=== PATIENT | male | born 1975 | race Caucasian/White ===

== ENCOUNTER 2018-01-25 11:16 | Inpatient (IN) | payer OTHER ==
[~2018-01-25] VITALS: Ht 177.8 cm; Wt 99.8 kg
[2018-01-25] MEDS ORDERED: LISI-603 PO (12:50)
[2018-01-25] MEDS ORDERED: THIAMINE HCL 200 MG/2 ML VIAL IM ONE (13:00)
[2018-01-25] MEDS ORDERED: 5 DAY TAPER OF LORAZEPAM -SERENITY PROTOCOL PO PRN (13:15)
[2018-01-25] MEDS ORDERED: LORAZEPAM 1 MG TABLET PO PRN (13:15)
[2018-01-25] MEDS ORDERED: MAG HYDROX/AL HYDROX/SIMETH 30 ML LIQUID UDC PO PRN (13:15)
[2018-01-25] MEDS ORDERED: LORAZEPAM 2 MG/1 ML VIAL IM PRN (13:15)
[2018-01-25] MEDS ORDERED: MAGNESIUM HYDROXIDE 30 ML LIQUID UDC PO PRN (13:15)
[2018-01-25] MEDS: LORAZEPAM 1 MG TABLET PO PRN ×3 (14:04→22:01)
[2018-01-25 14:37] LABS: *AMPHETAMINE, URINE NEGATIVE (NEGATIVE); *BARBITURATE, URINE NEGATIVE (NEGATIVE); *CANNABINOID, URINE POSITIVE (NEGATIVE); *COCCAINE, URINE NEGATIVE (NEGATIVE); *OPIATE, URINE NEGATIVE (NEGATIVE); *PHENCYCLIDINE SCREEN,URINE NEGATIVE (NEGATIVE)
[2018-01-25 15:02] LABS: BILIRUBIN,TOTAL 1.3 mg/dL (0.2-1.0); CREATININE 0.8 mg/dL (0.6-1.3); MAGNESIUM 1.4 mg/dL (1.8-2.4); POTASSIUM 3.6 mmol/L (3.5-5.1); TOTAL PROTEIN, SERUM 6.8 g/dL (6.4-8.2)
[2018-01-25 15:07] LABS: BASOPHILS % (AUTO) 1.3 % (0.0-2.0); EOSINOPHILS % (AUTO) 0.6 % (0.0-7.0); HEMATOCRIT 34.8 % (36.7-47.1); HEMOGLOBIN 12.1 g/dL (12.5-16.3); LYMPHOCYTES # (AUTO) 0.9 K/uL (20.0-40.0); LYMPHOCYTES % (AUTO) 27.7 % (20.5-51.5); MEAN CORPUSCULAR HEMOGLOBIN 31.3 uug (23.8-33.4); MEAN CORPUSCULAR HGB CONC 35 g/dL (32.5-36.3); MEAN CORPUSCULAR VOLUME 90.3 fL (73.0-96.2); MONOCYTES # (AUTO) 0.5 K/uL (2.0-10.0); MONOCYTES % (AUTO) 14.4 % (0.0-11.0); NEUTROPHILS # (AUTO) 1.9 K/uL (1.8-8.9); PLATELET COUNT (AUTO) 139 K/uL (152-348); RED BLOOD CELL COUNT(AUTO) 3.86 MIL/uL (4.06-5.63); WHITE BLOOD COUNT (AUTO) 3.3 K/uL (3.6-10.2)
[2018-01-25] MEDS ORDERED: MAGNESIUM OXIDE 400 MG TABLET PO ONE ×2 (15:45)
[2018-01-25 16:00] VITALS: BP 130/72
[2018-01-25] MEDS: LORAZEPAM 1 MG TABLET PO SCH ×2 (16:05→20:01)
[2018-01-25] MEDS: IBUPROFEN 600 MG TABLET PO PRN (16:05)
[2018-01-25] MEDS: FLUOXETINE HCL 20 MG CAPSULE PO SCH (17:43)
[2018-01-25 19:40] VITALS: BP 135/96
[2018-01-25] MEDS ORDERED: METHOCARBAMOL 750 MG TABLET PO ONE (19:45)
[2018-01-25] MEDS: ACETAMINOPHEN 325 MG TABLET PO PRN (20:01)
[2018-01-25 21:56] VITALS: BP 149/91
[2018-01-25] MEDS: CLONIDINE HCL 0.1 MG TABLET PO PRN (22:01)
[2018-01-25] MEDS: QUETIAPINE FUMARATE 100 MG TABLET PO SCH (22:11)
[2018-01-26] VITALS (7 sets, daily range): BP systolic 101–128; BP diastolic 63–87
[2018-01-26] MEDS: LORAZEPAM 1 MG TABLET PO PRN (02:39)
[2018-01-26] MEDS: IBUPROFEN 600 MG TABLET PO PRN ×3 (02:39→17:45)
[2018-01-26] MEDS: CLONIDINE HCL 0.1 MG TABLET PO PRN (04:33)
[2018-01-26] MEDS: THIAMINE HCL 100 MG TABLET PO SCH (08:15)
[2018-01-26] MEDS: FOLIC ACID 1 MG TABLET PO SCH (08:15)
[2018-01-26] MEDS: LORAZEPAM 1 MG TABLET PO SCH ×3 (08:15→20:14)
[2018-01-26] MEDS: FLUOXETINE HCL 20 MG CAPSULE PO SCH (08:15)
[2018-01-26] MEDS: ACETAMINOPHEN 325 MG TABLET PO PRN ×3 (08:15→21:55)
[2018-01-26] MEDS: MULTIVITAMINS,THERAPEUTIC TABLET PO SCH (08:15)
[2018-01-26] MEDS ORDERED: TUBERCULIN,PURIF.PROT.DERIV. 5 TU/0.1 ML TEST ID ONE (09:00)
[2018-01-26 12:09] LABS: HEPATITIS B SURFACE AG Negative (Negative)
[2018-01-26] MEDS ORDERED: METHOCARBAMOL 750 MG TABLET PO ONE (20:00)
[2018-01-26] MEDS: QUETIAPINE FUMARATE 100 MG TABLET PO SCH (20:14)
[2018-01-27] MEDS: CLONIDINE HCL 0.1 MG TABLET PO PRN ×2 (00:51→07:37)
[2018-01-27] MEDS: diphenhydrAMINE 25 MG CAP PO PRN (00:53)
[2018-01-27 04:00] VITALS: BP 142/99
[2018-01-27 08:01] VITALS: BP 144/100
[2018-01-27] MEDS: MAGNESIUM CHLORIDE 64 MG TABLET.SA PO SCH (08:04)
[2018-01-27] MEDS: THIAMINE HCL 100 MG TABLET PO SCH (08:04)
[2018-01-27] MEDS: FOLIC ACID 1 MG TABLET PO SCH (08:05)
[2018-01-27] MEDS: LORAZEPAM 1 MG TABLET PO SCH ×4 (08:05→20:33)
[2018-01-27] MEDS: FLUOXETINE HCL 20 MG CAPSULE PO SCH (08:05)
[2018-01-27] MEDS: LISINOPRIL 20 MG TABLET PO SCH (08:05)
[2018-01-27] MEDS: MULTIVITAMINS,THERAPEUTIC TABLET PO SCH (08:05)
[2018-01-27 08:09] LABS: CREATININE 0.8 mg/dL (0.6-1.3); MAGNESIUM 1.5 mg/dL (1.8-2.4); POTASSIUM 4.5 mmol/L (3.5-5.1)
[2018-01-27 08:14] LABS: BASOPHILS % (AUTO) 0.8 % (0.0-2.0); EOSINOPHILS % (AUTO) 1.4 % (0.0-7.0); HEMATOCRIT 34.4 % (36.7-47.1); HEMOGLOBIN 11.8 g/dL (12.5-16.3); LYMPHOCYTES # (AUTO) 0.8 K/uL (20.0-40.0); LYMPHOCYTES % (AUTO) 26.1 % (20.5-51.5); MEAN CORPUSCULAR HEMOGLOBIN 31.5 uug (23.8-33.4); MEAN CORPUSCULAR HGB CONC 34 g/dL (32.5-36.3); MEAN CORPUSCULAR VOLUME 91.6 fL (73.0-96.2); MONOCYTES # (AUTO) 0.3 K/uL (2.0-10.0); MONOCYTES % (AUTO) 9.7 % (0.0-11.0); PLATELET COUNT (AUTO) 154 K/uL (152-348); RED BLOOD CELL COUNT(AUTO) 3.76 MIL/uL (4.06-5.63); WHITE BLOOD COUNT (AUTO) 3.2 K/uL (3.6-10.2)
[2018-01-27 12:05] VITALS: BP 113/75
[2018-01-27] MEDS: IBUPROFEN 600 MG TABLET PO PRN ×2 (12:11→20:34)
[2018-01-27] MEDS: ACETAMINOPHEN 325 MG TABLET PO PRN ×2 (12:11→20:34)
[2018-01-27] MEDS ORDERED: MAGNESIUM OXIDE 400 MG TABLET PO ONE (13:00)
[2018-01-27] MEDS ORDERED: HYDROXYZINE PAMOATE 25 MG CAPSULE PO PRN (14:00)
[2018-01-27] MEDS: HYDROXYZINE PAMOATE 25 MG CAPSULE PO PRN (14:39)
[2018-01-27 16:58] VITALS: BP 127/86
[2018-01-27 20:00] VITALS: BP 123/79
[2018-01-27] MEDS: QUETIAPINE FUMARATE 100 MG TABLET PO SCH (20:34)
[2018-01-28] MEDS: LORAZEPAM 1 MG TABLET PO PRN ×3 (01:14→12:35)
[2018-01-28] MEDS: diphenhydrAMINE 25 MG CAP PO PRN (01:19)
[2018-01-28 03:20] VITALS: BP 144/100
[2018-01-28] MEDS: ACETAMINOPHEN 325 MG TABLET PO PRN ×3 (03:20→21:49)
[2018-01-28] MEDS: IBUPROFEN 600 MG TABLET PO PRN ×3 (03:20→21:45)
[2018-01-28] MEDS: CLONIDINE HCL 0.1 MG TABLET PO PRN (03:20)
[2018-01-28 04:00] VITALS: BP 124/83
[2018-01-28 08:00] VITALS: BP 128/90
[2018-01-28] MEDS: LORAZEPAM 1 MG TABLET PO SCH ×3 (08:42→21:40)
[2018-01-28] MEDS: FOLIC ACID 1 MG TABLET PO SCH (08:42)
[2018-01-28] MEDS: LISINOPRIL 20 MG TABLET PO SCH (08:43)
[2018-01-28] MEDS: FLUOXETINE HCL 20 MG CAPSULE PO SCH (08:43)
[2018-01-28] MEDS: MULTIVITAMINS,THERAPEUTIC TABLET PO SCH (08:44)
[2018-01-28] MEDS: THIAMINE HCL 100 MG TABLET PO SCH (08:44)
[2018-01-28] MEDS: MAGNESIUM CHLORIDE 64 MG TABLET.SA PO SCH (08:44)
[2018-01-28 12:30] VITALS: BP 145/87
[2018-01-28] MEDS ORDERED: TIZANIDINE HCL 4 MG TABLET PO SCH (14:30)
[2018-01-28 16:30] VITALS: BP 123/80
[2018-01-28 20:00] VITALS: BP 120/75
[2018-01-28] MEDS: OXYMETAZOLINE NASAL 0.05% 15 ML SPRAY NS SCH (21:00)
[2018-01-28] MEDS: QUETIAPINE FUMARATE 100 MG TABLET PO SCH (21:40)
[2018-01-28] MEDS: TIZANIDINE HCL 4 MG TABLET PO PRN (21:41)
[2018-01-28] MEDS: AMOXICILLIN-CLAVUL 875-125MG TABLET PO SCH (21:41)
[2018-01-29] MEDS: CLONIDINE HCL 0.1 MG TABLET PO PRN ×2 (01:46→10:59)
[2018-01-29] MEDS: diphenhydrAMINE 25 MG CAP PO PRN (01:46)
[2018-01-29] MEDS: HYDROXYZINE PAMOATE 25 MG CAPSULE PO PRN ×2 (01:46→10:59)
[2018-01-29] MEDS: TIZANIDINE HCL 4 MG TABLET PO PRN (05:54)
[2018-01-29 08:00] VITALS: BP 110/63
[2018-01-29] MEDS: IBUPROFEN 600 MG TABLET PO PRN ×2 (08:04→21:03)
[2018-01-29] MEDS: MAGNESIUM CHLORIDE 64 MG TABLET.SA PO SCH (08:04)
[2018-01-29] MEDS: FLUOXETINE HCL 20 MG CAPSULE PO SCH (08:04)
[2018-01-29] MEDS: MULTIVITAMINS,THERAPEUTIC TABLET PO SCH (08:04)
[2018-01-29] MEDS: FOLIC ACID 1 MG TABLET PO SCH (08:04)
[2018-01-29] MEDS: THIAMINE HCL 100 MG TABLET PO SCH (08:05)
[2018-01-29] MEDS: LORAZEPAM 1 MG TABLET PO SCH ×2 (08:05→21:03)
[2018-01-29] MEDS: AMOXICILLIN-CLAVUL 875-125MG TABLET PO SCH ×2 (08:05→21:03)
[2018-01-29] MEDS: ACETAMINOPHEN 325 MG TABLET PO PRN (08:05)
[2018-01-29] MEDS: LISINOPRIL 20 MG TABLET PO SCH (08:05)
[2018-01-29] MEDS: OXYMETAZOLINE NASAL 0.05% 15 ML SPRAY NS SCH ×2 (08:05→17:00)
[2018-01-29 08:27] LABS: BASOPHILS # (AUTO) 0.1 K/uL (0.0-8.0); BASOPHILS % (AUTO) 1.4 % (0.0-2.0); EOSINOPHILS # (AUTO) 0.1 K/uL (0.0-0.7); EOSINOPHILS % (AUTO) 1.5 % (0.0-7.0); HEMATOCRIT 35.5 % (36.7-47.1); HEMOGLOBIN 12.1 g/dL (12.5-16.3); LYMPHOCYTES # (AUTO) 1.2 K/uL (20.0-40.0); LYMPHOCYTES % (AUTO) 29.5 % (20.5-51.5); MEAN CORPUSCULAR HEMOGLOBIN 31.5 uug (23.8-33.4); MEAN CORPUSCULAR HGB CONC 34 g/dL (32.5-36.3); MEAN CORPUSCULAR VOLUME 92.9 fL (73.0-96.2); MONOCYTES # (AUTO) 0.4 K/uL (2.0-10.0); MONOCYTES % (AUTO) 9.1 % (0.0-11.0); NEUTROPHILS # (AUTO) 2.3 K/uL (1.8-8.9); NEUTROPHILS % (AUTO) 58.5 % (38.5-71.5); PLATELET COUNT (AUTO) 191 K/uL (152-348); RED BLOOD CELL COUNT(AUTO) 3.82 MIL/uL (4.06-5.63)
[2018-01-29 12:00] VITALS: BP 132/88
[2018-01-29] MEDS ORDERED: LORAZEPAM 1 MG TABLET PO ONE (13:15)
[2018-01-29] MEDS ORDERED: MAGNESIUM OXIDE 400 MG TABLET PO ONE (15:00)
[2018-01-29 16:00] VITALS: BP 125/84
[2018-01-29 20:00] VITALS: BP 121/79
[2018-01-29] MEDS: QUETIAPINE FUMARATE 100 MG TABLET PO SCH (21:04)
[2018-01-30] VITALS: BP 125/82
[2018-01-30] MEDS: HYDROXYZINE PAMOATE 25 MG CAPSULE PO PRN ×2 (00:24→17:17)
[2018-01-30] MEDS: ACETAMINOPHEN 325 MG TABLET PO PRN ×3 (00:25→20:23)
[2018-01-30] MEDS: CLONIDINE HCL 0.1 MG TABLET PO PRN ×3 (00:29→20:23)
[2018-01-30] MEDS: IBUPROFEN 600 MG TABLET PO PRN ×2 (07:58→17:17)
[2018-01-30 08:00] VITALS: BP 132/88
[2018-01-30] MEDS: OXYMETAZOLINE NASAL 0.05% 15 ML SPRAY NS SCH ×2 (09:06→17:18)
[2018-01-30] MEDS: MULTIVITAMINS,THERAPEUTIC TABLET PO SCH (09:06)
[2018-01-30] MEDS: LISINOPRIL 20 MG TABLET PO SCH (09:06)
[2018-01-30] MEDS: THIAMINE HCL 100 MG TABLET PO SCH (09:06)
[2018-01-30] MEDS: FOLIC ACID 1 MG TABLET PO SCH (09:06)
[2018-01-30] MEDS: FLUOXETINE HCL 20 MG CAPSULE PO SCH (09:06)
[2018-01-30] MEDS: AMOXICILLIN-CLAVUL 875-125MG TABLET PO SCH ×2 (09:06→20:23)
[2018-01-30] MEDS: MAGNESIUM CHLORIDE 64 MG TABLET.SA PO SCH (09:06)
[2018-01-30 12:00] VITALS: BP 141/88
[2018-01-30 16:00] VITALS: BP 139/88
[2018-01-30 20:15] VITALS: BP 138/89
[2018-01-30] MEDS: QUETIAPINE FUMARATE 100 MG TABLET PO SCH (21:50)
[2018-01-31] MEDS: IBUPROFEN 600 MG TABLET PO PRN (02:00)
[2018-01-31] MEDS: HYDROXYZINE PAMOATE 25 MG CAPSULE PO PRN (02:00)
[2018-01-31] MEDS: diphenhydrAMINE 25 MG CAP PO PRN (02:00)
[2018-01-31 04:00] VITALS: BP 133/83
[2018-01-31] MEDS: CLONIDINE HCL 0.1 MG TABLET PO PRN ×2 (04:03→08:19)
[2018-01-31 08:00] VITALS: BP 130/85
[2018-01-31] MEDS: ACETAMINOPHEN 325 MG TABLET PO PRN (08:18)
[2018-01-31] MEDS: THIAMINE HCL 100 MG TABLET PO SCH (08:18)
[2018-01-31] MEDS: AMOXICILLIN-CLAVUL 875-125MG TABLET PO SCH (08:19)
[2018-01-31] MEDS: FLUOXETINE HCL 20 MG CAPSULE PO SCH (08:19)
[2018-01-31] MEDS: FOLIC ACID 1 MG TABLET PO SCH (08:19)
[2018-01-31] MEDS: OXYMETAZOLINE NASAL 0.05% 15 ML SPRAY NS SCH (08:19)
[2018-01-31] MEDS: MULTIVITAMINS,THERAPEUTIC TABLET PO SCH (08:19)
[2018-01-31 08:20] VITALS: BP 148/85
[2018-01-31] MEDS: TIZANIDINE HCL 4 MG TABLET PO PRN (08:20)
[2018-01-31] MEDS: LISINOPRIL 20 MG TABLET PO SCH (08:20)
[2018-01-31] MEDS: MAGNESIUM CHLORIDE 64 MG TABLET.SA PO SCH (08:31)
== END 2018-01-31 09:42 | disposition other institution (70) | DRG 895 ==
LOC: SRC 12:38
PROVIDERS: ADMIT Family Medicine; ATTEND Family Medicine
PROC: HZ2ZZZZ Detoxification Services for Substance Abuse Treatment (ICD-10-PCS; principal; 2018-01-25)
PROC: HZ31ZZZ Individual Counseling for Substance Abuse Treatment, Behavioral (ICD-10-PCS; 2018-01-26)
PROC: HZ41ZZZ Group Counseling for Substance Abuse Treatment, Behavioral (ICD-10-PCS; 2018-01-28)
DX: F10.239 Alcohol dependence with withdrawal, unspecified (principal); S06.9X9A Unspecified intracranial injury with loss of consciousness of unspecified duration, initial encounter; F33.2 Major depressive disorder, recurrent severe without psychotic features; S00.12XA Contusion of left eyelid and periocular area, initial encounter; Y90.9 Presence of alcohol in blood, level not specified; W19.XXXA Unspecified fall, initial encounter; Y92.019 Unspecified place in single-family (private) house as the place of occurrence of the external cause; Z83.3 Family history of diabetes mellitus; J32.2 Chronic ethmoidal sinusitis; I10 Essential (primary) hypertension; E83.42 Hypomagnesemia; F41.9 Anxiety disorder, unspecified; R51 Headache
CPT/HCPCS: 36415; 70030-TC; 80307; 80346; 80349; 83735; 84450; 84460; 85025; 86580; 86592; 86705; 86803; 87340; 87806; A4663; G0480; J3411; Q0163

== ENCOUNTER → 2018-01-28 | Outpatient (CLI) | payer OTHER ==
[~2018-01-28] MED LIST: LISI-603 PO
== END | disposition home or self-care (01) ==
LOC: RAD 14:43
PROVIDERS: ATTEND Family Medicine
DX: I67.82 Cerebral ischemia (principal); G31.9 Degenerative disease of nervous system, unspecified; J32.3 Chronic sphenoidal sinusitis
CPT/HCPCS: 70450; A4663

== ENCOUNTER 2018-04-19 18:11 | Inpatient (IN) | payer OTHER ==
[~2018-04-19] VITALS: Ht 177.8 cm; Wt 111.1 kg
--- NOTE | 2018-04-19 18:35 | NUR ---
Pre-Admission Patient met in intake office, he is intoxicated and breath smells of alcohol, he is sitting in a wheelchair and is accompanied by his Mother. Patient states he is here to Withdraw from ETOH ( Vodka) , he states today starting at 6am and ending at 1700 he drank 750ml of Vodka. He states he has only been drinking 750ml of Vodka per day for past 1 week as he was previously here and then went to Rehab. Vital signs: BP= 121/74, HR= 129, RR=18, T= 98.3, pain level is 0/10, Height= 5'10", Wt 245lbs Unable to score CIWA as Patient is intoxicated. Will Endorse to material handler 2nd shift nurse to continue assessment when patient is on floor.
--- NOTE | 2018-04-19 19:10 | NUR ---
ADMISSION NOTE Pt is a 43 y/o male who is being admitted for medically supervised withdrawal from ETOH. The pt is mildly intoxicated and is currently beginning to display s/s of withdrawal. Pt appears disheveled and unkempt. Pt is anxious and restless. Pt is tremulous and is grinding his teeth. He is A/O to person, place, time, and purpose. Pt states that withdrawal from this substance typically includes tremors, restless legs, auditory and visual hallucinations, anxiety, and depression. Pt states the last time he withdrew from alcohol I saw my mom and my , and had a conversation with them. They were not even in the room with me. Pt denies a h/o withdrawal induced seizures. Pt states current substance use as follows: 1. ETOH (Vodka): 750ml daily for the past week. Pt last drink was 750ml between 0630 and 1230 on 04/19/18. He first began drinking in 2015. Pt states that he is seeking treatment today because his addiction has led him to ruin his relationships with his family. Im hurting my mom. My just served me with divorce papers. My sisters are mad at me. The pt was at [facility], [place] from 01/24/18 to 01/31/18. After that he went to [facility] for 30 days. However, as soon as he left [facility] he began to drink again and has been drinking on and off ever since. Pt states he denise with stress in his life by drinking. When something comes up and I cant handle it I drink. I know its wrong, but I dont know what else to do. I feel helpless. Pt states that this time will be different because he is ready to completely focus on recovery. I need to save myself, my mom, and my sisters. Pt also states that he was not in the right frame of mind the last time he was here. I just took it for granted the first time. I thought I was rae and had conquered this. Pt wants to continue treatment at an [facility] and find a new sponsor and go back to AA meetings. Pt states his mom and dad will be supportive of his recovery. V/S: T:98.1, P:120, RR:14, SPO2:99, BP:131/70. Pt denies any pain. Pulse is strong and regular, but tachycardic. Respirations are unlabored and even. Skin is intact. Pt follows a regular diet at home. Pt is allergic to pork, porcine, and kiwi. Pt is 510 and 245lbs. Pt states he that he doesnt smoke. Pt does not recall the name of his PCP and he doesnt have a psychiatrist at the moment. Pt has a medical h/o depression and HTN, which he takes medication at home for. Pt educated about the plan of care including detox, group and 1:1 therapy, and discharge planning. Pt was encouraged to be verbal and openly communicate with nurses and staff. Positive support was provided to pt for his decision to enter recovery.
[2018-04-19] MEDS ORDERED: 4 DAY TAPER VALIUM-SERENITY PROTOCOL PO PRN (20:30)
[2018-04-19] MEDS ORDERED: MAGNESIUM HYDROXIDE 30 ML LIQUID UDC PO PRN (20:30)
[2018-04-19] MEDS ORDERED: DIAZEPAM 5 MG TABLET PO PRN (20:30)
[2018-04-19] MEDS ORDERED: LOPERAMIDE HCL 2 MG CAPSULE PO PRN ×2 (20:30)
[2018-04-19] MEDS ORDERED: MAG HYDROX/AL HYDROX/SIMETH 30 ML LIQUID UDC PO PRN (20:30)
[2018-04-19] MEDS ORDERED: LORAZEPAM 2 MG/1 ML VIAL IM PRN (20:30)
[2018-04-19] MEDS ORDERED: DIAZEPAM 10 MG TABLET PO PRN (20:30)
--- NOTE | 2018-04-19 21:07 | NUR ---
CIWA ASSESSMENT CIWA 16. Pt presenting w/ anxiety, restless legs, tremors, and sweats. V/S: T: 98.1, P:120, RR:16, SPO2:99, BP:131/70.
[2018-04-19 21:11] LABS: BASOPHILS % (AUTO) 0.3 % (0.0-2.0); EOSINOPHILS % (AUTO) 0.3 % (0.0-7.0); HEMOGLOBIN 13.8 g/dL (12.5-16.3); LYMPHOCYTES # (AUTO) 2.3 K/uL (20.0-40.0); LYMPHOCYTES % (AUTO) 29.7 % (20.5-51.5); MEAN CORPUSCULAR HGB CONC 35 g/dL (32.5-36.3); MEAN CORPUSCULAR VOLUME 83.7 fL (73.0-96.2); MONOCYTES # (AUTO) 0.4 K/uL (2.0-10.0); MONOCYTES % (AUTO) 5.2 % (0.0-11.0); NEUTROPHILS # (AUTO) 5.1 K/uL (1.8-8.9); NEUTROPHILS % (AUTO) 64.5 % (38.5-71.5); PLATELET COUNT (AUTO) 196 K/uL (152-348); RED BLOOD CELL COUNT(AUTO) 4.77 MIL/uL (4.06-5.63); WHITE BLOOD COUNT (AUTO) 7.9 K/uL (3.6-10.2)
[2018-04-19 21:26] LABS: BILIRUBIN,TOTAL 0.5 mg/dL (0.2-1.0); POTASSIUM 3.6 mmol/L (3.5-5.1); TOTAL PROTEIN, SERUM 7.8 g/dL (6.4-8.2)
[2018-04-19] MEDS ORDERED: THIAMINE HCL 200 MG/2 ML VIAL IM ONE (21:30)
[2018-04-19] MEDS: diphenhydrAMINE 50 MG CAPSULE PO PRN (21:41)
[2018-04-19] MEDS: DIAZEPAM 10 MG TABLET PO PRN (21:41)
--- NOTE | 2018-04-19 21:41 | NUR ---
PRN VALIUM, CLONIDINE, AND BENADRYL ADMINISTRATION Valium 20mg and Clonidine 0.1mg were given for anxiety and a CIWA of 16. Benadryl 50mg given for sleep, Pt c/o insomnia. Will reassess pt in 1 hr.
[2018-04-19] MEDS: CLONIDINE HCL 0.1 MG TABLET PO PRN (21:42)
[2018-04-19 21:54] LABS: THYROID STIMULATING HORMONE 1.135 mIU/mL (0.358-3.740)
[2018-04-19 22:03] VITALS: BP 131/70
--- NOTE | 2018-04-19 22:41 | NUR ---
PRN VALIUM, CLONIDINE, AND BENADRYL REASSESSMENT Pt states anxiety has subsided a little, but still has racing thoughts. Pt also states that they have body aches in his wrists and legs, and he has heartburn. Will administer mediation and keep monitoring pt..
[2018-04-19] MEDS: METHOCARBAMOL 750 MG TABLET PO PRN (22:57)
--- NOTE | 2018-04-19 22:57 | NUR ---
PRN MAALOX AND ROBAXIN ADMINISTRATION Maalox 30ml and Robaxin 750mg given for heartburn and body aches. Will reassess pt in 1 hr.
[2018-04-19] MEDS: HYDROXYZINE PAMOATE 25 MG CAPSULE PO PRN (23:27)
--- NOTE | 2018-04-19 23:27 | NUR ---
PRN VISTARIL ADMINISTRATION Vistaril 50mg given for anxiety. Pt c/o racing thoughts that are keeping him from sleeping. Will reassess pt in 1 hr.
--- NOTE | 2018-04-19 23:57 | NUR ---
PRN MAALOX AND ROBAXIN REASSESSMENT Pt is in bed w/ his eyes closed. Pt's respirations are unlabored and even.
--- NOTE | 2018-04-20 00:02 | NUR ---
CIWA DEFERRED. V/S REFUSED Pt is in bed w/ his eyes closed. Pt's respirations are unlabored and even.
[2018-04-20 00:19] LABS: *AMPHETAMINE, URINE NEGATIVE (NEGATIVE); *BARBITURATE, URINE NEGATIVE (NEGATIVE); *CANNABINOID, URINE POSITIVE (NEGATIVE); *COCCAINE, URINE NEGATIVE (NEGATIVE); *OPIATE, URINE NEGATIVE (NEGATIVE); *PHENCYCLIDINE SCREEN,URINE NEGATIVE (NEGATIVE)
--- NOTE | 2018-04-20 00:27 | NUR ---
PRN VISTARIL REASSESSMENT Pt is in bed w/ his eyes closed. Pt's respirations are unlabored and even.
--- NOTE | 2018-04-20 01:45 | NUR ---
CIWA ASSESSMENT CIWA 17. Pt presenting w/ anxiety, tremors, restless legs, body aches, hot flashes, flushing, and sweats. V/S: T:98.2, P:114, RR:14, SPO2:98, BP:137/85.
[2018-04-20] MEDS: DIAZEPAM 10 MG TABLET PO PRN (01:54)
--- NOTE | 2018-04-20 01:54 | NUR ---
PRN VALIUM ADMINISTRATION Valium 20mg given for CIWA 17. Pt c/o racing thoughts and difficulty sleeping. Will reassess pt in 1hr.
--- NOTE | 2018-04-20 02:54 | NUR ---
PRN VALIUM REASSESSMENT Pt is in bed w/ his eyes closed. Pt's respirations are unlabored and even.
[2018-04-20] MEDS ORDERED: FOLI1TAB16 PO ×2 (03:22→03:30)
[2018-04-20] MEDS ORDERED: CLON0.1T PO (03:22)
[2018-04-20] MEDS ORDERED: TIZA4TAB4 PO (03:22)
[2018-04-20] MEDS ORDERED: FLUO20TA28 PO (03:24)
[2018-04-20] MEDS ORDERED: LISI-603 PO (03:25)
[2018-04-20] MEDS ORDERED: QUET100T PO (03:26)
[2018-04-20] MEDS ORDERED: HYDR50CA5 PO (03:26)
[2018-04-20] MEDS ORDERED: ALPR1TAB7 PO (03:27)
[2018-04-20] MEDS ORDERED: MAGN400C PO (03:28)
[2018-04-20] MEDS ORDERED: CALC117719 PO (03:36)
--- NOTE | 2018-04-20 04:26 | NUR ---
CIWA DEFERRED. V/S REFUSED Pt is in bed w/ his eyes closed. Pt's respirations are unlabored and even.
--- NOTE | 2018-04-20 05:30 | NUR ---
CIWA ASSESSMENT CIWA 20. Pt began to present w/ anxiety, restless leg, restlessness, tremors, body aches, nausea w/ emesis, headaches, sweats, hot flashes, depressed mood, flat affect.
[2018-04-20] MEDS: HYDROXYZINE PAMOATE 25 MG CAPSULE PO PRN (05:50)
[2018-04-20] MEDS: ONDANSETRON 4 MG/2 ML VIAL IM PRN (05:50)
[2018-04-20] MEDS: CLONIDINE HCL 0.1 MG TABLET PO PRN ×3 (05:50→21:59)
--- NOTE | 2018-04-20 05:50 | NUR ---
PRN ZOFRAN, CLONIDINE, AND VISTARIL ADMINISTRATION Zofran 4mg IM given for nausea w/ emesis. Clonidine 0.1mg and Vistaril 50mg given for anxiety, agitation, sweats, and chills. Will reassess Zofran in 30 min and Clonidine and Vistaril in 1 hr.
--- NOTE | 2018-04-20 06:20 | NUR ---
PRN ZOFRAN REASSESSMENT Pt states no more episodes of emesis and nausea has decreased. Will continue to monitor pt.
--- NOTE | 2018-04-20 06:50 | NUR ---
PRN CLONIDINE AND VISTARIL REASSESSMENT Pt is in bed w/ his eyes closed. Pt's respirations are unlabored and even.
--- NOTE | 2018-04-20 06:59 | NUR ---
END OF SHIFT NOTE Endorsed pt to oncoming nurse. Pt is a 43 y/o male A/O to person, place, time, and purpose. Pt was admitted for medically supervised withdrawal from ETOH. Pt has not started a taper, but was on PRN Valium. Pt began to present w/ anxiety, restless leg, restlessness, tremors, body aches, nausea w/ emesis, headaches, sweats, hot flashes, depressed mood, flat affect. PRN Valium 20mg x 2 given for CIWA >16, noted partially effective. PRN Clonidine 0.1mg x2 and Vistaril 50mg x2 given for anxiety, sweats, and agitation, noted partially effective. PRN Zofran 4mg IM given for nausea, noted effective. PRN Benadryl 50mg given for sleep, noted partially effective. PRN Robaxin 750mg and Maalox 30ml given for body aches and heartburn, noted effective. Pt denies S/I and H/I. Pts fluid intake was 1500ml and slept for 4 hrs. Last CIWA 20 @ 0530. Call light is within reach.
--- NOTE | 2018-04-20 07:30 | NUR ---
Start of shift note; Received report from night nurse. Patient is a 43 year old male admitted on 04/19/18 for ETOH withdrawal. Patient reported nausea, anxiety, gross tremors noted, muscle aches, generalized body aches, complaining of diaphoresis, restless legs. Patient received PRN Valium, Zofran, Clonidine, Vistaril, Benadryl, Robaxin, Maalox per endorsement all noted to be effective. Patient to start 4 day Valium taper today to start at 0900. Educated patient regarding the importance of compliance to treatment and medication regime. All safety measures secured. Will continue to monitor patient.
[2018-04-20 08:00] VITALS: BP 140/89
--- NOTE | 2018-04-20 08:00 | NUR ---
CIWA Assessment; Patient's CIWA score is 21 manifested by anxiety, agitation, nausea, stomach cramps, tremors, restless legs, intermittent nausea, vomiting, racing thoughts, inability to concentrate, fatigue and malaise. Patient to start Valium taper today. Will continue to monitor patient.
[2018-04-20] MEDS: MULTIVITAMINS,THERAPEUTIC TABLET PO SCH (08:12)
[2018-04-20] MEDS: METHOCARBAMOL 750 MG TABLET PO PRN ×2 (08:13→21:03)
[2018-04-20] MEDS: DIAZEPAM 10 MG TABLET PO SCH ×3 (08:13→21:03)
[2018-04-20] MEDS: FOLIC ACID 1 MG TABLET PO SCH (08:13)
[2018-04-20] MEDS: THIAMINE HCL 100 MG TABLET PO SCH (08:13)
--- NOTE | 2018-04-20 08:13 | NUR ---
PRN Robaxin ; Patient is complaining of muscle aches, PRN Robaxin 750mg PO given as per MD order. Will continue to monitor patient.
[2018-04-20] MEDS ORDERED: DIAZEPAM 10 MG TABLET PO ONE (08:45)
[2018-04-20] MEDS ORDERED: TUBERCULIN,PURIF.PROT.DERIV. 5 TU/0.1 ML TEST ID ONE (09:00)
[2018-04-20] MEDS ORDERED: 4 DAY TAPER VALIUM-SERENITY PROTOCOL PO PRN (09:00)
--- NOTE | 2018-04-20 09:13 | NUR ---
Re-assessment; Patient denies muscle aches at this time. PRN Robaxin noted to be effective.
[2018-04-20] MEDS: PROCHLORPERAZINE EDISYLATE 10 MG/2 ML VIAL IM PRN (09:24)
--- NOTE | 2018-04-20 09:24 | NUR ---
PRN administration N/V; Patient had 3 episodes of emesis, patient received Zofran IM 2 hours ago, MD notified. MD ordered Compazine 10mg /2ml IM given on right deltoid for severe nausea and vomiting . HOB elevated to prevent further nausea. Will closely monitor patient.
--- NOTE | 2018-04-20 09:43 | NUR ---
One time dose of Valium; MD made aware of patient's severe N/V. MD ordered one time dose of Valium 20mg PO once for CIWA of 21. Patient had 3 episodes of emesis post administration of morning medications. Administered Valium 20 mg Once PO as per MD order. Instructed patient to notify staff of further nausea and vomiting, patient verbalized understanding. Will closely monitor patient.
--- NOTE | 2018-04-20 10:24 | NUR ---
Re-assessment; No further nausea and vomiting noted at this time. PRN Compazine noted to be effective.
[2018-04-20] MEDS: FLUOXETINE HCL 20 MG CAPSULE PO SCH (10:25)
--- NOTE | 2018-04-20 10:43 | NUR ---
Re-assessment; Patient's current CIWA score is 19 manifested by anxiety, agitation, nausea, stomach cramps, tremors, restless legs, intermittent nausea, racing thoughts, inability to concentrate, fatigue and malaise. Will continue to monitor patient.
[2018-04-20 12:00] VITALS: BP 160/102
--- NOTE | 2018-04-20 12:00 | NUR ---
CIWA Assessment; Patient's CIWA score is 19 manifested by anxiety, agitation, nausea, stomach cramps, tremors, restless legs, intermittent nausea, vomiting, racing thoughts, inability to concentrate, fatigue and malaise. Patient was started on Valium taper today. Will continue to monitor patient.
[2018-04-20] MEDS: ONDANSETRON ODT 4 MG TAB.RAPDIS SL PRN (12:27)
--- NOTE | 2018-04-20 12:32 | NUR ---
PRN Zofran/ Clonidine; Patient reported nausea, PRN Zofran 4mg ODT given to prevent further nausea. Patient's BP is 160/102 , PRN Clonidine 0.1mg PO given for elevated BP, chills, diaphoresis and agitation. Will closely monitor patient.
--- NOTE | 2018-04-20 13:32 | NUR ---
Re-assessment; Patient denies nausea at this time. Current BP noted 128/88. PRN medications noted to be effective.
[2018-04-20 16:00] VITALS: BP 130/85
--- NOTE | 2018-04-20 18:42 | NUR ---
End of shift note; Patient is AOX4, presented with anxiety, agitation, stomach cramps, racing thoughts, inability to concentrate, muscle aches, generalized discomfort, tremors, diaphoresis, nausea. Patient remained compliant with treatment plan and medication regime. Patient participated in group activities and therapies. Patient's last CIWA score is 19 at 1600. Patient received PRN Zofran, Compazine 10mg IM, Robaxin, Clonidine all noted to be effective. All safety measures secured. Met all needs.
[2018-04-20] MEDS ORDERED: GUAIFENESIN/DEXTROMETHORPHAN 5 ML UDC PO PRN (19:00)
--- NOTE | 2018-04-20 19:37 | NUR ---
START OF SHIFT NOTE Rcvd report from outgoing nurse. Pt is a 43 y/o male A/O to person, place, time, and purpose. Pt was admitted for medically supervised withdrawal from ETOH. Pt is on day 1 of a 4 day Valium taper. Pt has been presenting w/ anxiety, restlessness, body aches, nausea w/ emesis, depressed mood, flat affect, and disheveled appearance. Pt attended groups, but became nauseous and had 3 bouts of emesis in the middle of the day. PRN Robaxin, Clonidine, and Zofran were given and noted effective by outgoing nurse. Last CIWA 19 @ 1600. Call light is within reach. Pt will continue to be monitored and needs met.
[2018-04-20 20:04] VITALS: BP 148/84
--- NOTE | 2018-04-20 20:04 | NUR ---
CIWA ASSESSMENT CIWA 18. Pt has been presenting w/ anxiety, restlessness, body aches, nausea w/ emesis, depressed mood, flat affect, and disheveled appearance. V/S: T:98.1, P:108, RR:16, SPO2:99, BP:148/84.
--- NOTE | 2018-04-20 21:03 | NUR ---
PRN ROBAXIN ADMINISTRATION Robaxin 750mg given for body/joint aches. Pt c/o of pain 6/10 in his ankle and wrists. Will reassess pt in 1 hr.
[2018-04-20] MEDS: QUETIAPINE FUMARATE 100 MG TABLET PO SCH (21:59)
--- NOTE | 2018-04-20 21:59 | NUR ---
PRN CLONIDINE ADMINISTRATION Clonidine 0.1mg given for anxiety, agitation, and sweats, BP:148/84. Will reassess pt in 1 hr.
--- NOTE | 2018-04-20 22:03 | NUR ---
PRN ROBAXIN REASSESSMENT Pt states relief from pain. P states pain is 2/10 and tolerable. Will continue to monitor pt.
--- NOTE | 2018-04-20 22:59 | NUR ---
PRN CLONIDINE REASSESSMENT Pt is in bed. Pt states relief from anxiety and agitation. BP: 133/79. Will continue to monitor pt.
--- NOTE | 2018-04-21 00:02 | NUR ---
CIWA ASSESSMENT CIWA 16. Pt has been presenting w/ anxiety, restlessness, body aches, nausea w/ emesis, depressed mood, flat affect, and disheveled appearance. V/S refused by pt.
[2018-04-21] MEDS: HYDROXYZINE PAMOATE 25 MG CAPSULE PO PRN ×2 (00:30→08:18)
[2018-04-21] MEDS: diphenhydrAMINE 50 MG CAPSULE PO PRN (00:30)
--- NOTE | 2018-04-21 00:30 | NUR ---
PRN VISTARIL AND BENADRYL ADMINISTRATION Vistaril 50mg and Bneadryl 50mg given for anxiety, racing thoughts, and sleep. Will reassess pt in 1 hr.
[2018-04-21] MEDS: IBUPROFEN 600 MG TABLET PO PRN ×2 (00:35→21:17)
--- NOTE | 2018-04-21 00:35 | NUR ---
PRN MOTRIN ADMINISTRATION Motrin 600mg given for pain. Pt c/o 5/10 ankle pain. Will reassess pain in 1 hr.
--- NOTE | 2018-04-21 01:35 | NUR ---
PRN VISTARIL, BENADRYL, AND MOTRIN REASSESSMENT Pt is in bed w/ his eyes closed. Pt's respirations are unlabored and even.
--- NOTE | 2018-04-21 07:02 | NUR ---
END OF SHIFT NOTE Endorsed pt to oncoming nurse. Pt is a 43 y/o male A/O to person, place, time, and purpose. Pt was admitted for medically supervised withdrawal from ETOH. Pt completed day 1 of a 4 day Valium taper. Pt continues presenting w/ anxiety, restlessness, body aches, nausea w/ emesis, depressed mood, flat affect, unshaven and odorous hygiene, and disheveled appearance. Pt denies any S/I or H/I. PRN Robaxin, Clonidine, Vistaril, Benadryl, and Motrin were given throughout the shift and noted effective. Pts fluid intake was 2000ml and he slept intermittently for 6 hrs. Last CIWA 16 @ 0000. Call light is within reach.
--- NOTE | 2018-04-21 07:45 | NUR ---
START OF SHIFT NOTE Received report from night nurse, 43 year old male admitted for Heroin withdrawal. Patient continues on 4 days Valium taper tolerating well. Per endorsement patient received PRN Vistaril, Clonidine, Benadryl, Motrin effective per night nurse, slept for 6 hours and last CIWA score was 16. Received patient alert awake oriented x4 presented with depressed, anxiety, agitation, disheveled, emotional volatility, bilateral hand tremors noted, unkempt. Patient is due for schedule medications. All safety measures in place, Call light within reach. Will cont to monitor.
[2018-04-21 08:00] VITALS: BP 151/88
[2018-04-21] MEDS: FOLIC ACID 1 MG TABLET PO SCH (08:12)
[2018-04-21] MEDS: THIAMINE HCL 100 MG TABLET PO SCH (08:12)
[2018-04-21] MEDS: MULTIVITAMINS,THERAPEUTIC TABLET PO SCH (08:12)
[2018-04-21] MEDS: FLUOXETINE HCL 20 MG CAPSULE PO SCH (08:12)
[2018-04-21] MEDS: TIZANIDINE HCL 4 MG TABLET PO PRN (08:13)
[2018-04-21] MEDS: DIAZEPAM 5 MG TABLET PO SCH ×5 (08:15→21:16)
--- NOTE | 2018-04-21 08:15 | NUR ---
CIWA ASSESSMENT/REFUSED VALIUM CIWA score noted 12, patient presented with labile facial expression, anhedonia, unkempt, fatigue, headache, anxious, agitated, restless, bilateral hand tremors noted. Patient refused his scheduled Valium taper offered x3 risk and benefits explained,patient verbalized understanding. Patient stated " I am doing fine i don't want to take Valium". MD Notified. Will cont to monitor.
--- NOTE | 2018-04-21 08:18 | NUR ---
PRN VISTARIL/ZANAFLEX Patient reported anxiety, agitation, headache 5/10. Patient provided with non pharmacological intervention with no relief. Patient was given PRN Vistaril 50mg PO and Zanaflex 4mg Po as ordered. Will cont to monitor and reassess.
--- NOTE | 2018-04-21 09:18 | NUR ---
VISTARIL/ZANAFLEX REASSESSMENT Per patient medications were effective headache lower to 1/10 and anxiety and agitation subsided.
--- NOTE | 2018-04-21 10:33 | NUR ---
Therapist prompted client to attend all group therapy sessions.
[2018-04-21 12:00] VITALS: BP 146/84
--- NOTE | 2018-04-21 12:00 | NUR ---
CIWA ASSESSMENT CIWA score noted 9, patient continues to exhibits s/s of withdrawal such as anxiety, agitation, restless, anhedonia, dysphoria, bilateral hand tremors noted. Patient is due for schedule medication. Will cont to monitor.
[2018-04-21] MEDS: LISINOPRIL 20 MG TABLET PO SCH (13:43)
--- NOTE | 2018-04-21 14:10 | NUR ---
Psychiatrist Communication: Pt noted with aduio/visual hallucinations. Psychiatrist made aware with new order for 50mg Seroquel [id number] for hallucinations. Orders noted and carried out.
[2018-04-21] MEDS: QUETIAPINE FUMARATE 25 MG TABLET PO PRN (14:37)
[2018-04-21] MEDS: ONDANSETRON 4 MG/2 ML VIAL IM PRN (14:37)
--- NOTE | 2018-04-21 14:37 | NUR ---
PRN SEROQUEL Patient reported auditory hallucinations. " Pt stated he is hearing "my mom is taking to me." PRN Seroquel 50mg PO given as ordered. Will cont to monitor.
--- NOTE | 2018-04-21 14:37 | NUR ---
PRN ZOFRAN Patient reported nauseated and emesis x1, PRN Zofran IM given as ordered. Will cont to monitor.
[2018-04-21] MEDS ORDERED: DIAZEPAM 10 MG TABLET PO ONE (14:45)
--- NOTE | 2018-04-21 14:59 | NUR ---
VALIUM ONE TIME CIWA SCORE NOTED -15, Patient c/o of increased in anxiety, agitation, restless,pacing around room and unit, bilateral hand tremors, sweats and moist skin, auditory hallucinations, Patient noted hypervigilance, patient stated " I am hearing my mom is taking to me". MD notified, new order to give Valium 10mg Po x1, medication given as ordered. Will cont to monitor and reassess.
--- NOTE | 2018-04-21 15:07 | NUR ---
ZOFRAN REASSESSMENT Per patient nausea improved and no episode of emesis and medication were effective.
--- NOTE | 2018-04-21 15:37 | NUR ---
SEROQUEL REASSESSMENT Patient reported Seroquel was effective auditory hallucination subsided.
[2018-04-21 16:00] VITALS: BP 147/89
--- NOTE | 2018-04-21 16:00 | NUR ---
VALIUM REASSESSMENT CIWA score noted-13 slightly lower. Patient c/o of following symptoms anxiety, agitation, restless, bilateral hand tremors,myalgia. Patient is due for his scheduled medication. Addendum: 04/21/18 at 1722 by VENKATA HUNTER LVN VALIUM REASSESSMENT AND CIWA REASSESSMENT
[2018-04-21] MEDS: METHOCARBAMOL 750 MG TABLET PO PRN (16:45)
--- NOTE | 2018-04-21 16:45 | NUR ---
PRN ROBAXIN Patient reported left ankle myalgia 5/10, PRN Robaxin 750mg PO given as ordered. Will cont to monitor and reassess.
--- NOTE | 2018-04-21 17:45 | NUR ---
ROBAXIN REASSESSMENT Patient reported left ankle muscle spasms lower to 2/10, medication was effective.
--- NOTE | 2018-04-21 19:20 | NUR ---
END OF SHIFT NOTE Gave report to night nurse, patient is admitted for medically supervised from ETOH withdrawal. Patient presented with sad facial expression, flushed face, nausea, diaphoretic, anxiety, agitation, restless, anhedonia, poor oral hygiene, dysphoria. Patient received his scheduled Valium taper with CIWA score 13. Patient also received PRN x1 Valium, Robaxin, Zofran, Seroquel noted to be effective. Patient was seen by MD with new order to give lisinopril 20mg PO medication administered as ordered. Skin intact warm and dry to touch. Encourage patient to attend groups activities to learn new coping skills. Patient noted attending groups activities. Endorsed patient to night nurse in stable condition.
--- NOTE | 2018-04-21 19:45 | NUR ---
START OF SHIFT NOTE Rcvd report from outgoing nurse. Pt is a 43 y/o male A/O to person, place, time, and purpose. Pt was admitted for medically supervised withdrawal from EYOH. Pt is on day 2 of a 4 day Valium taper. Pt has been presenting w/ anxiety, agitation, emotional volatility, depression, flat affect, sweats, tremors, odorous and disheveled appearance, body aches, and headaches. Pt refused Valium taper in the morning. Pt began to have auditory and visual hallucinations. MD and hot metal charger were made aware. PRN Vistaril, Zanaflex, Zofran Seroquel, and Robaxin were given and noted effective by outgoing nurse. Last CIWA 13 @ 1600. Call light is in within reach. Pt will continue to be monitored and needs met.
[2018-04-21 20:03] VITALS: BP 134/89
--- NOTE | 2018-04-21 20:03 | NUR ---
CIWA ASSESSMENT CIWA 13. Pt has been presenting w/ anxiety, agitation, emotional volatility, depression, flat affect, sweats, tremors, odorous and disheveled appearance, body aches, and headaches. V/S: T:97.2, P:123, RR: 18,SPO2:100, BP:134/89.
[2018-04-21] MEDS: QUETIAPINE FUMARATE 100 MG TABLET PO SCH (21:17)
--- NOTE | 2018-04-21 21:17 | NUR ---
PRN MOTRIN ADMINISTRATION Motrin 600mg given for body aches/pain. Pt c/o 12/06 left ankle pain. Will reassess pt in 1 hr.
--- NOTE | 2018-04-21 22:17 | NUR ---
PRN MOTRIN REASSESSMENT Pt states relief from pain. Pt states 0/10 pain. Will continue to monitor pt.
--- NOTE | 2018-04-22 00:02 | NUR ---
CIWA DEFERRED. V/S REFUSED Pt is in bed w/ his eyes closed. Pt's respirations are unlabored and even
[2018-04-22 00:45] VITALS: BP 131/83
--- NOTE | 2018-04-22 00:45 | NUR ---
CIWA ASSESSMENT CIWA 13. Pt has been presenting w/ anxiety, agitation, emotional volatility, depression, flat affect, sweats, tremors, odorous and disheveled appearance, body aches, and headaches. P:108 AND BP:131/83.
[2018-04-22] MEDS: METHOCARBAMOL 750 MG TABLET PO PRN ×2 (00:52→10:55)
[2018-04-22] MEDS: diphenhydrAMINE 50 MG CAPSULE PO PRN (00:52)
[2018-04-22] MEDS: HYDROXYZINE PAMOATE 25 MG CAPSULE PO PRN (00:52)
--- NOTE | 2018-04-22 00:52 | NUR ---
PRN CLONIDINE, BENADRYL, VISTARIL, AND ROBAXIN ADMINISTRATION Clonidine 0.1mg and Vistaril 50mg given for anxiety and agitation. CIWA 13. Benadryl 50mg given for sleep. Robaxin 750mg given for body aches/pain. Pt stating 6/10 left ankle pain. Will reassess pt in 1 hr.
[2018-04-22] MEDS: CLONIDINE HCL 0.1 MG TABLET PO PRN (00:53)
[2018-04-22 01:01] VITALS: BP 131/83
--- NOTE | 2018-04-22 01:52 | NUR ---
PRN CLONIDINE, VISTARIL, BENADRYL, AND ROBAXIN REASSESSMENT Pt is in bed w/ his eyes closed. Pt's respirations are unlabored and even.
[2018-04-22] MEDS: TIZANIDINE HCL 4 MG TABLET PO PRN (03:07)
[2018-04-22] MEDS: QUETIAPINE FUMARATE 25 MG TABLET PO PRN ×2 (03:07→10:52)
--- NOTE | 2018-04-22 03:07 | NUR ---
PRN SEROQUEL AND ZANAFELX ADMINISTRATION Seroquel 50mg given for auditory and visual hallucinations. Pt observed staring at the wall and talking to his mom and in his room. Pt stated that he is "tripping hard". Zanaflex given for leg spasms. Pt noted kicking the foot of the bed w/ his legs. Will reassess pt in 1 hr.
[2018-04-22] MEDS: ONDANSETRON ODT 4 MG TAB.RAPDIS SL PRN (03:43)
--- NOTE | 2018-04-22 03:43 | NUR ---
PRN ZOFRAN ADMINISTRATION Zofran 4mg IM given for nausea. Pt c/o nausea w/ no emesis. Will reassess pt and nausea in 1 hr.
--- NOTE | 2018-04-22 03:45 | NUR ---
CIWA ASSESSMENT CIWA 13. Pt has been presenting w/ anxiety, agitation, emotional volatility, depression, flat affect, auditory and visual hallucinations, sweats, tremors, odorous and disheveled appearance, body aches, and headaches.
--- NOTE | 2018-04-22 04:07 | NUR ---
PRLeela BEAVERS AND SEROQUEL REASSESSMENT Pt is still having auditory and visual hallucinations. Pt no longer has visible leg spasms. Will continue to monitor pt.
--- NOTE | 2018-04-22 04:17 | NUR ---
WA ASSESSMENT CIWA 13. Pt has been presenting w/ anxiety, agitation, emotional volatility, depression, flat affect, auditory and visual hallucinations, sweats, tremors, odorous and disheveled appearance, body aches, and headaches. Addendum: 04/22/18 at 0542 by KEVIN DOOLEY RN DUPLICATE
--- NOTE | 2018-04-22 04:30 | NUR ---
CIWA ASSESSMENT CIWA 23. Pt has been presenting w/ anxiety, agitation, emotional volatility, depression, flat affect, sweats, tremors, odorous and disheveled appearance, body aches, and headaches. Pt is now having moderate-severe auditory and visual hallucinations. Pt observed having convsersations w/ family and seeing his family in his room. Will continue to closely monitor pt.
--- NOTE | 2018-04-22 04:43 | NUR ---
PRN ZOFRAN REASSESSMENT Pt states relief from nausea. No episodes of emesis noted. Will continue to monitor.
[2018-04-22] MEDS ORDERED: DIAZEPAM 10 MG TABLET PO ONE (04:45)
--- NOTE | 2018-04-22 04:51 | NUR ---
PRN VALIUM ADMINISTER Valium 20mg given for CIWA score of 23. Pt continues to have auditory and visual hallucinations. Will reassess pt in 1 hr.
--- NOTE | 2018-04-22 05:30 | NUR ---
CIWA ASSESSMENT CIWA 30. Pt has been presenting w/ anxiety, agitation, emotional volatility, depression, flat affect, sweats, tremors, odorous and disheveled appearance, body aches, and headaches. Pt's auditory and visual hallucinations are escalating rapidly. Pt is now stating he is at home and w/ his family. Pt speaks as if he was at home and referencing items at his house. Pt is becoming less and less re-directable. Will speak special agent in charge regarding 1:1 observation.
--- NOTE | 2018-04-22 05:35 | NUR ---
NURSING NOTE Pt placed on 1:1 observation for safety. Pt's hallucinations are escalating. [employer] MAN Darryn is now at bedside. Will coontinue to closely monitor pt for safety and well being.
--- NOTE | 2018-04-22 05:51 | NUR ---
PRN VALIUM REASSESSMENT Pt's hallucinations have not decreased or improved. Pt is now having severe-extreme auditory and visual hallucinations. Pt was placed on 1:1 to close observation.
--- NOTE | 2018-04-22 07:11 | NUR ---
END OF SHIFT NOTE Endorsed pt to oncoming nurse. Pt is a 43 y/o male A/O to person, place, time, and purpose. Pt was admitted for medically supervised withdrawal from EYNJ. Pt completed day 2 of a 4 day Valium taper. Pt continues presenting w/ anxiety, agitation, emotional volatility, depression, flat affect, sweats, tremors, odorous and disheveled appearance, and body aches. Pt began to have auditory and visual hallucinations that quickly escalated to extreme and almost continuous. Pt believes they are at home and his family is around him. Pt was placed on 1:1 close observation for safety at 0535 w/ IMMIGRATION PARALEGAL. PRN Vistaril, Clonidine, Zanaflex, Zofran, Seroquel, Robaxin, Benadryl, Motrin, and Valium were given and noted ineffective. Pts fluid intake was 6500ml and he slept for 1 hr. Last CIWA 30 @ 0530. Call light is in within reach.
[2018-04-22] MEDS: PROCHLORPERAZINE EDISYLATE 10 MG/2 ML VIAL IM PRN (07:39)
--- NOTE | 2018-04-22 07:40 | NUR ---
PRN Compazine 10mg IM given in Right Deltoid for constant N/V Will reassess
--- NOTE | 2018-04-22 07:40 | NUR ---
Start Of Shift Patient is a 43 yr old male who was admitted to [facility] on 04/19/18 for a medically supervised withdrawal from ETOH ( Vodka), he has been placed on a 4 day Valium taper and this is day 3. Upon report , patient started experiencing visual and auditory hallucinations at approximately 0500 this AM, on assessing patient he is speaking in Farsi , he is alert and oriented x3 but continues to talk nonsensical and laughs out loud , he complains of nausea, 10mg Compazine given IM @ 0740. PRN meds given on PM shift: Benadryl, clonidine, Zanaflex, Vistaril, Robaxin, Zofran, Motrin, Seroquel and Valium. His last CIWA was 30 @ 0530 and he did not sleep last night. He has a 1:1 sitter for safety and is in bed with side rails upx 2 sitter at bedside.Continue to follow Md plan of care and offer support as needed.
[2018-04-22 08:00] VITALS: BP 131/89
--- NOTE | 2018-04-22 08:00 | NUR ---
CIWA 39 Withdrawal symptoms presents as Nausea, vomiting, audio and visual hallucinations, restlessness, talking to self, emotional volatility, bilateral hand tremors, insomnia, he is hyperverbal and has loose thoughts with difficulty thinking clearly. Schedule Valium taper given and Compazine for N/V
[2018-04-22] MEDS: FOLIC ACID 1 MG TABLET PO SCH (08:32)
[2018-04-22] MEDS: MULTIVITAMINS,THERAPEUTIC TABLET PO SCH (08:32)
[2018-04-22] MEDS: FLUOXETINE HCL 20 MG CAPSULE PO SCH (08:32)
[2018-04-22] MEDS: THIAMINE HCL 100 MG TABLET PO SCH (08:32)
[2018-04-22] MEDS: LISINOPRIL 20 MG TABLET PO SCH (08:33)
--- NOTE | 2018-04-22 08:40 | NUR ---
PRN Reassess Compazine 10mg IM effective, patient N/V has ceased, medication effective
[2018-04-22] MEDS ORDERED: 5 DAY TAPER VALIUM-SERENITY PROTOCOL PO PRN (09:00)
[2018-04-22] MEDS ORDERED: DIAZEPAM 10 MG TABLET PO PRN ×2 (09:00)
[2018-04-22] MEDS ORDERED: DIAZEPAM 5 MG TABLET PO SCH (09:00)
[2018-04-22] MEDS ORDERED: DIAZEPAM 5 MG TABLET PO PRN (09:00)
[2018-04-22] MEDS: DIAZEPAM 10 MG TABLET PO SCH ×2 (09:22→13:29)
--- NOTE | 2018-04-22 10:55 | NUR ---
PRN Valium 20mg PO and Seroquel 50mg given for CIWA of 32 patient is still experiencing hallucinations (A/V) non threatening. Robaxin 750mg PO given for lower extremity pain
--- NOTE | 2018-04-22 11:55 | NUR ---
PRN Reassess patient is still reporting A/V hallucinations, he had to leave rec therapy group due to distracting other clients with his hallucinations and outburst of talking to imaginary people, Valium and Seroquel were not effective.
[2018-04-22 12:00] VITALS: BP 121/73
--- NOTE | 2018-04-22 12:00 | NUR ---
CIWA 33 Patient still presents with A/V hallucinations, talking to self out loud and to imaginary people, he is restless and pacing, scheduled Valium will be given
[2018-04-22 13:06] LABS: HEPATITIS B SURFACE AG Negative (Negative)
[2018-04-22] MEDS: IBUPROFEN 600 MG TABLET PO PRN (13:28)
--- NOTE | 2018-04-22 14:00 | NUR ---
Crisis Team call placed Patient is packing up his belongings and trying to leave AMA, he is a danger to self, crisis team will be in to evaluate
--- NOTE | 2018-04-22 15:30 | NUR ---
Chip/Crisis team with patient
[2018-04-22 16:00] VITALS: BP 143/87
[2018-04-22 17:42] LABS: BASOPHILS % (AUTO) 0.4 % (0.0-2.0); EOSINOPHILS # (AUTO) 0.1 K/uL (0.0-0.7); EOSINOPHILS % (AUTO) 1.9 % (0.0-7.0); HEMATOCRIT 38.1 % (36.7-47.1); HEMOGLOBIN 12.9 g/dL (12.5-16.3); LYMPHOCYTES # (AUTO) 1.6 K/uL (20.0-40.0); LYMPHOCYTES % (AUTO) 23.9 % (20.5-51.5); MEAN CORPUSCULAR HEMOGLOBIN 28.7 uug (23.8-33.4); MEAN CORPUSCULAR HGB CONC 34 g/dL (32.5-36.3); MEAN CORPUSCULAR VOLUME 85.1 fL (73.0-96.2); MONOCYTES # (AUTO) 0.5 K/uL (2.0-10.0); MONOCYTES % (AUTO) 6.6 % (0.0-11.0); NEUTROPHILS # (AUTO) 4.6 K/uL (1.8-8.9); NEUTROPHILS % (AUTO) 67.2 % (38.5-71.5); PLATELET COUNT (AUTO) 140 K/uL (152-348); RED BLOOD CELL COUNT(AUTO) 4.48 MIL/uL (4.06-5.63); WHITE BLOOD COUNT (AUTO) 6.9 K/uL (3.6-10.2)
[2018-04-22 17:55] LABS: BILIRUBIN,TOTAL 0.4 mg/dL (0.2-1.0); CREATININE 1.1 mg/dL (0.6-1.3); MAGNESIUM 1.4 mg/dL (1.8-2.4); POTASSIUM 4.8 mmol/L (3.5-5.1); TOTAL PROTEIN, SERUM 7.5 g/dL (6.4-8.2)
--- NOTE | 2018-04-22 18:00 | NUR ---
AMA Patient left AMA @ 1800 AMA paperwork signed, resources for AA/NA /Support groups given. Patient was escorted off the floor by Tech
[2018-04-23] MEDS ORDERED: DIAZEPAM 5 MG TABLET PO SCH (09:00)
[2018-04-23] MEDS ORDERED: DIAZEPAM 10 MG TABLET PO SCH (09:00)
[2018-04-24] MEDS ORDERED: DIAZEPAM 5 MG TABLET PO SCH (09:00)
[2018-04-25] MEDS ORDERED: DIAZEPAM 5 MG TABLET PO SCH (09:00)
[2018-04-26] MEDS ORDERED: DIAZEPAM 5 MG TABLET PO SCH (09:00)
== END 2018-04-22 18:13 | disposition left against medical advice (07) | DRG 894 ==
LOC: SRC 18:11
PROVIDERS: ADMIT Family Medicine Addiction Medicine; ATTEND Family Medicine Addiction Medicine
PROC: HZ41ZZZ Group Counseling for Substance Abuse Treatment, Behavioral (ICD-10-PCS; principal; 2018-04-19)
PROC: HZ2ZZZZ Detoxification Services for Substance Abuse Treatment (ICD-10-PCS; principal; 2018-04-19)
PROC: HZ31ZZZ Individual Counseling for Substance Abuse Treatment, Behavioral (ICD-10-PCS; 2018-04-21)
DX: F10.230 Alcohol dependence with withdrawal, uncomplicated (principal); Y90.9 Presence of alcohol in blood, level not specified; I10 Essential (primary) hypertension; F41.9 Anxiety disorder, unspecified; Z79.899 Other long term (current) drug therapy; F32.9 Major depressive disorder, single episode, unspecified
CPT/HCPCS: 36415; 70030-TC; 80307; 80349; 83690; 83735; 84443; 85025; 86580; 86592; 86705; 86803; 87340; 87806; A4663; G0480; J0780; J2405; J3411; Q0162; Q0163

== ENCOUNTER 2018-04-30 12:24 | Inpatient (IN) | payer OTHER ==
[~2018-04-30] VITALS: Ht 177.8 cm; Wt 108.9 kg
--- NOTE | 2018-04-30 12:15 | NUR ---
Pre-admission Pre-admission assessment performed in the intake department of [facility]. Pt is A&O and ambulatory. He does not appear intoxicated and answers questions appropriately. He does report feeling anxious and is observed with tremors. Vital signs are B/P 138/89, HR 131, RR 18, O2 sat 98%, T 99.1, pain 0/10. He denies chest pain or SOB. He explains that he has been drinking vodka 750mL/day. Last drank a total of 750mL today prior to admission but he reports vomiting after. Pt is stable and [facility]
[~2018-04-30 12:24] MED LIST changes: +CALC117719 PO; +CLON0.1T PO; +FLUO20TA28 PO; +FOLI1TAB16 PO; +HYDR50CA5 PO; +MAGN400C PO; +QUET100T PO; +TIZA4TAB4 PO
[2018-04-30] MEDS ORDERED: MAGNESIUM HYDROXIDE 30 ML LIQUID UDC PO PRN (12:45)
[2018-04-30] MEDS ORDERED: diphenhydrAMINE 50 MG CAPSULE PO PRN (12:45)
[2018-04-30] MEDS: THIAMINE HCL 100 MG TABLET PO SCH (12:45)
[2018-04-30] MEDS ORDERED: LOPERAMIDE HCL 2 MG CAPSULE PO PRN ×2 (12:45)
[2018-04-30] MEDS ORDERED: ONDANSETRON ODT 4 MG TAB.RAPDIS SL PRN (12:45)
[2018-04-30] MEDS ORDERED: LORAZEPAM 2 MG/1 ML VIAL IM PRN (12:45)
[2018-04-30] MEDS ORDERED: THIAMINE HCL 200 MG/2 ML VIAL IM ONE (12:45)
[2018-04-30] MEDS ORDERED: LORAZEPAM 1 MG TABLET PO PRN (12:45)
[2018-04-30 13:37] LABS: BILIRUBIN,TOTAL 0.2 mg/dL (0.2-1.0); CREATININE 1.1 mg/dL (0.6-1.3); MAGNESIUM 1.8 mg/dL (1.8-2.4); POTASSIUM 3.8 mmol/L (3.5-5.1); TOTAL PROTEIN, SERUM 8.1 g/dL (6.4-8.2)
[2018-04-30 13:38] LABS: MEAN CORPUSCULAR VOLUME 85.5 fL (73.0-96.2); MONOCYTES # (AUTO) 0.4 K/uL (2.0-10.0)
[2018-04-30 13:39] LABS: *AMPHETAMINE, URINE NEGATIVE (NEGATIVE); *BARBITURATE, URINE NEGATIVE (NEGATIVE); *CANNABINOID, URINE POSITIVE (NEGATIVE); *COCCAINE, URINE NEGATIVE (NEGATIVE); *OPIATE, URINE NEGATIVE (NEGATIVE); *PHENCYCLIDINE SCREEN,URINE NEGATIVE (NEGATIVE)
[2018-04-30] MEDS ORDERED: LORAZEPAM 1 MG TABLET PO ONE (13:45)
[2018-04-30 13:52] LABS: BASOPHILS % (AUTO) 0.3 % (0.0-2.0); EOSINOPHILS % (AUTO) 0.3 % (0.0-7.0); HEMATOCRIT 41.6 % (36.7-47.1); HEMOGLOBIN 13.9 g/dL (12.5-16.3); LYMPHOCYTES # (AUTO) 1.3 K/uL (20.0-40.0); LYMPHOCYTES % (AUTO) 18.2 % (20.5-51.5); MEAN CORPUSCULAR HEMOGLOBIN 28.6 uug (23.8-33.4); MEAN CORPUSCULAR HGB CONC 34 g/dL (32.5-36.3); MONOCYTES % (AUTO) 5.8 % (0.0-11.0); NEUTROPHILS # (AUTO) 5.6 K/uL (1.8-8.9); NEUTROPHILS % (AUTO) 75.4 % (38.5-71.5); RED BLOOD CELL COUNT(AUTO) 4.87 MIL/uL (4.06-5.63); WHITE BLOOD COUNT (AUTO) 7.4 K/uL (3.6-10.2)
[2018-04-30 13:53] LABS: PLATELET COUNT (AUTO) 358 K/uL (152-348)
[2018-04-30 14:00] LABS: THYROID STIMULATING HORMONE 0.959 mIU/mL (0.358-3.740)
[2018-04-30] MEDS: FOLIC ACID 1 MG TABLET PO SCH (14:24)
[2018-04-30] MEDS: LISINOPRIL 20 MG TABLET PO SCH (14:24)
[2018-04-30] MEDS: FLUOXETINE HCL 20 MG CAPSULE PO SCH (14:24)
--- NOTE | 2018-04-30 14:24 | NUR ---
PRN'S GIVEN Pt was c/o nausea and states of having x2 episodes of emesis. Pt is obsercved agitated, anxious, fine tremors and sweats. Pt was given Zofran 4mg SL PRN and Ativan 2mg PO one time. CIWA score was 15 upon admission. Encouraged increase fluid intake for hydration. Will continue to monitor.
[2018-04-30 16:00] VITALS: BP 134/101
[2018-04-30] MEDS: LORAZEPAM 1 MG TABLET PO PRN ×2 (16:28→20:14)
--- NOTE | 2018-04-30 16:37 | NUR ---
PRN Ativan Pt is anxious and agitated with difficulty sitting still. He has moderate tremors, moist skin, and nausea. B/P 154/101 and HR 119. CIWA score 19. PRN Ativan administered.
--- NOTE | 2018-04-30 16:40 | NUR ---
Therapist prompted client to attend group therapy. Therapist provided motivational interviewing to increase motivation.
[2018-04-30] MEDS ORDERED: ASPIRIN 325 MG TABLET PO STA (17:12)
--- NOTE | 2018-04-30 17:40 | NUR ---
PRN Ativan reassessment PRN Ativan effective. Pt reports feeling more relaxed. He is less fidgety and tremors are reduced. CIWA score 12.
[2018-04-30] MEDS: CLONIDINE HCL 0.1 MG TABLET PO PRN (17:45)
--- NOTE | 2018-04-30 17:45 | NUR ---
PRN GIVEN Pt was c/o increase anxiety and agitation. Pt was given Clonidine 0.1mg PO PRN was given as ordered. Will continue to monitor.
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
--- NOTE | 2018-04-30 18:05 | NUR ---
CONTINUATION OF ADMISSION NOTE Pt was positive for Benzo and Marijuana. Pt states while at [facility], he was on a Valium taper and he would smoke marijuana about 3.5g daily. Last use was 3 days, pt states he smoked 1g.
--- NOTE | 2018-04-30 18:15 | NUR ---
MD Communication EKG and Troponin resulted. EKG show tachycardia. Troponin WNL. notified.
--- NOTE | 2018-04-30 19:00 | NUR ---
END OF SHIFT NOTE Pt is a 43 yr old male, AA&Ox4. Pt is a newly admit for ETOH withdrawal and is to start on 5 day Ativan taper on 05/01/18. Endorsed to chicken dresser nurse to continue with care. Last CIWA score was 12 at 1725. Pt continues to c/o anxiety, agitation, nausea, sweats, chills and headache. Encouraged increase fluid intake for hydration. Safety precautions observed.
--- NOTE | 2018-04-30 19:44 | NUR ---
START OF SHIFT NOTE Rcvd report from outgoing nurse. Pt is a 44 y/o male A/O to person, place, time, and purpose. Pt was admitted for medically supervised withdrawal from ETOH. Pt will start a 5 day Ativan taper on 05/01. Pt has been presenting w/ anxiety, agitation, flat affect, depressed mood, nausea, sweats, and tremors. Pt states that he has been clenching and grinding his teeth. PRN Ativa x2, Zofran SL, Clonidine, ASA, and Lisinopril were given and noted effective by the outgoing nurse. Last CIWA 12 @ 6793. Call light is within reach. Pt will continue to be monitored and needs met.
[2018-04-30 20:06] VITALS: BP 155/96
--- NOTE | 2018-04-30 20:06 | NUR ---
CIWA ASSESSMENT CIWA 17. Pt has been presenting w/ anxiety, agitation, flat affect, depressed mood, nausea, sweats, and tremors. Pt states that he has been clenching and grinding his teeth. V/S: T:97.9, P:141, RR:18, SPO2:100, BP:155/96
--- NOTE | 2018-04-30 20:14 | NUR ---
PRN ATIVAN ADMINISTRATION Ativan 2mg given for anxiety and agitation. CIWA 17. Will reassess pt in 1hr.
[2018-04-30] MEDS: PROCHLORPERAZINE EDISYLATE 10 MG/2 ML VIAL IM PRN (20:20)
--- NOTE | 2018-04-30 20:20 | NUR ---
PRN COMPAZINE ADMINISTRATION Compazine 10mg IM given for nausea w/ no emesis. Pt previously given Zofran SL and was ineffective. Will reassess in 30 min.
--- NOTE | 2018-04-30 20:50 | NUR ---
PRN COMPAZINE REASSESSMENT Pt states nausea has gone away. Pt states no episodes of emesis. Will continue to monitor pt.
--- NOTE | 2018-04-30 21:14 | NUR ---
PRN ATIVAN REASSESSMENT Pt is in bed. Pt states anxiety and agitation has decreased. Will continue to monitor pt.
[2018-04-30] MEDS: QUETIAPINE FUMARATE 100 MG TABLET PO SCH (21:26)
--- NOTE | 2018-05-01 00:06 | NUR ---
CIWA DEFERRED. V/S REFUSED Pt is in bed w/ his eyes closed. Pt's respirations are unlabored and even.
--- NOTE | 2018-05-01 04:06 | NUR ---
CIWA DEFERRED. V/S REFUSED Pt is in bed / his eyes closed. pt's respirations are unlabored and even.
--- NOTE | 2018-05-01 07:05 | NUR ---
END OF SHIFT NOTE Endorsed pt to oncoming nurse. Pt is a 44 y/o male A/O to person, place, time, and purpose. Pt was admitted for medically supervised withdrawal from ETOH. Pt will start a 5 day Ativan taper on 05/01. Pt continues presenting w/ anxiety, agitation, flat affect, depressed mood, nausea, sweats, and tremors. Pt states that he has been clenching and grinding his teeth. Pt denies any S/I or H/I. PRN Ativa 2mg for CIWA of 17 and Compazine 10mg for anausea were given and noted effective. Pts fluid intake was 855ml and he slept for 8hr. Last CIWA 17 @ 1999. Call light is within reach.
--- NOTE | 2018-05-01 07:30 | NUR ---
Start of Shift Alpine Guide received report on 43 year old male admitted to [facility] on 04/30/18 for medical management of ETOH withdrawals. Pt endorses allergies to pork and Kiwi, full code and regular diet. PMH to include Anxiety, depression. HTN with a history of seizures( last reported on 11/24/17) and Delrium Tremons . Pt currently on an Ativan taper and last CIWA 17, per NOC report. Pt administered 2mg Ativan(anxiety) and Compazine(nausea) as PRN medication on NOC, per report. Alpine Guide encounters pt in pts room with pt resting with eyes closed. Even and unlabored respiration noted. Bed in low position with wheels locked and side rails up x2. Will continue to monitor, support and encourage according to plan of care.
[2018-05-01 08:14] LABS: HEPATITIS B SURFACE AG Negative (Negative)
[2018-05-01] MEDS: FOLIC ACID 1 MG TABLET PO SCH (08:32)
[2018-05-01] MEDS: MULTIVITAMINS,THERAPEUTIC TABLET PO SCH (08:33)
[2018-05-01] MEDS: LISINOPRIL 20 MG TABLET PO SCH (08:33)
[2018-05-01] MEDS: LORAZEPAM 1 MG TABLET PO SCH ×4 (08:33→21:36)
[2018-05-01] MEDS: THIAMINE HCL 100 MG TABLET PO SCH (08:33)
[2018-05-01] MEDS: FLUOXETINE HCL 20 MG CAPSULE PO SCH (08:34)
[2018-05-01 08:45] VITALS: BP 126/73
[2018-05-01] MEDS ORDERED: 5 DAY TAPER OF LORAZEPAM -SERENITY PROTOCOL PO PRN (09:00)
[2018-05-01] MEDS ORDERED: TUBERCULIN,PURIF.PROT.DERIV. 5 TU/0.1 ML TEST ID ONE (09:00)
[2018-05-01] MEDS: PROCHLORPERAZINE EDISYLATE 10 MG/2 ML VIAL IM PRN (09:02)
--- NOTE | 2018-05-01 09:02 | NUR ---
PRN IM Compazine Pt with complaints of intermittent nausea and requests medication by name. Pt administered per order with pt tolerating well. Will continue to monitor, support and encourage according to plan of care.
--- NOTE | 2018-05-01 09:32 | NUR ---
PRN Re-Assessment Pt states, " I feel better, a little nauseous, but better." Will continue to monitor, support and encourage according to plan of care.
--- NOTE | 2018-05-01 09:32 | NUR ---
PRN Re-Assessment Pt denies current nausea and is resting with eyes clsoed and even and unlabored respirations. Will continue to monitor, support and encourage according to plan of care.
[2018-05-01 12:00] VITALS: BP 137/87
--- NOTE | 2018-05-01 12:00 | NUR ---
CIWA 15 Pt is tremulous, diaphoretic, anxious, restless and complains of nausea, chills and TH. Will continue to monitor, support and encourage according to plan of care.
--- NOTE | 2018-05-01 12:13 | NUR ---
Therapist prompted client to attend daily group therapy sessions and client agreed to do so.
[2018-05-01 16:30] VITALS: BP 142/79
--- NOTE | 2018-05-01 16:30 | NUR ---
CIWA 14 Pt is diaphoretic, tremulous and anxious with restlessness and complaints of nausea and chills. Will continue to monitor, support and encourage according to plan of care.
--- NOTE | 2018-05-01 18:50 | NUR ---
End of Shift Director Biomedical Engineering provided report on 43 year old male admitted to [facility] on 04/30/18 for medical management of ETOH withdrawals. Pt endorses allergies to pork and Kiwi, full code and regular diet. PMH to include Anxiety, depression. HTN with a history of seizures( last reported on 11/24/17) and Delrium Tremons . Pt currently on an Ativan taper and last CIWA 14 recorded at 1630. Pt administered Compazine(nausea) as PRN medication on this shift . Pt has been isolative to room. Pt has been resting, but is compliant and cooperative with writers assessments and requests. Pt is A/o x4 and able to make needs known. Linear thought process with clear speech pattern. Pt with a blunted affect and depressed mood. Pt is dysphoric and has anhedonia. Pt is diaphoretic, tremulous, anxious and restless. Pt complains of nausea and chills. Bed in low position with wheels locked and side rails up x2.
--- NOTE | 2018-05-01 19:11 | NUR ---
Start of shift note Received report from day shift nurse. Pt is a 43 yo male, A+Ox4, presenting to [facility] for medically supervised ETOH withdrawal. Pt noted with anxiety, depressed demeanor, agitation, and fatigue. Pt has HX of anxiety, depression, HTN, and seizure which will be monitored during shift. Pt continues on 5 day Ativan taper, tolerated well. Respirations even and unlabored. Will continue to monitor.
--- NOTE | 2018-05-01 20:11 | NUR ---
CIWA Assessment CIWA: 12. Pt noted with fine tremors, sweat on forehead, anxiety, agitation, itchiness, and depressed demeanor. Respirations even and unlabored. Will continue to monitor.
[2018-05-01 20:22] VITALS: BP 129/87
[2018-05-01] MEDS: QUETIAPINE FUMARATE 100 MG TABLET PO SCH (21:37)
[2018-05-01] MEDS: IBUPROFEN 600 MG TABLET PO PRN (21:37)
--- NOTE | 2018-05-01 21:37 | NUR ---
PRN Motrin Pt c/o generalized body aches 01/06 and requested for PRN Motrin. Medication given and tolerated well. Will reassess within 1 HR. Will continue to monitor.
--- NOTE | 2018-05-01 22:30 | NUR ---
PRN Motrin Reassessment Medication effective. Pt expresses reduction of pain to 2/10. No s/s of ASE noted at this time. Respirations even and unlabored. Will continue to monitor.
--- NOTE | 2018-05-02 00:29 | NUR ---
V/S refused and CIWA Assessment deferred for sleep. Respirations even and unlabored. Will continue to monitor.
--- NOTE | 2018-05-02 04:04 | NUR ---
V/S refused and CIWA Assessment deferred for sleep. Respirations even and unlabored. Will continue to monitor.
--- NOTE | 2018-05-02 06:58 | NUR ---
End of shift note Pt was continuously noted with depressed demeanor, anxiety, agitation, and fatigue. Pt remained in room for entire shift. Pt remained compliant and cooperative in all aspects of treatment. Pt was given PRN Motrin @2136. Pt remains on 5 day Ativan taper, tolerated well. Pt slept for a total of 10 HRS. Last CIWA: 12 @2010. Respirations even and unlabored. Will endorse to day shift nurse.
[2018-05-02 07:09] LABS: BASOPHILS % (AUTO) 0.7 % (0.0-2.0); EOSINOPHILS # (AUTO) 0.1 K/uL (0.0-0.7); EOSINOPHILS % (AUTO) 1.6 % (0.0-7.0); HEMATOCRIT 37.5 % (36.7-47.1); HEMOGLOBIN 12.5 g/dL (12.5-16.3); LYMPHOCYTES # (AUTO) 1.4 K/uL (20.0-40.0); LYMPHOCYTES % (AUTO) 29.9 % (20.5-51.5); MEAN CORPUSCULAR HEMOGLOBIN 28.7 uug (23.8-33.4); MEAN CORPUSCULAR HGB CONC 33 g/dL (32.5-36.3); MEAN CORPUSCULAR VOLUME 86.2 fL (73.0-96.2); MONOCYTES # (AUTO) 0.2 K/uL (2.0-10.0); MONOCYTES % (AUTO) 4.6 % (0.0-11.0); NEUTROPHILS # (AUTO) 2.9 K/uL (1.8-8.9); NEUTROPHILS % (AUTO) 63.2 % (38.5-71.5); PLATELET COUNT (AUTO) 234 K/uL (152-348); RED BLOOD CELL COUNT(AUTO) 4.35 MIL/uL (4.06-5.63); WHITE BLOOD COUNT (AUTO) 4.5 K/uL (3.6-10.2)
[2018-05-02 07:28] LABS: BILIRUBIN,DIRECT 0.1 mg/dL (0.0-0.2); BILIRUBIN,TOTAL 0.3 mg/dL (0.2-1.0); TOTAL PROTEIN, SERUM 6.9 g/dL (6.4-8.2)
--- NOTE | 2018-05-02 07:30 | NUR ---
START OF SHIFT Pt 43 y/o male admitted for etoh withdrawal. Pt received in room on bed with eyes closed resting, but easily arousable to name. Pt alert and oriented to name, place, and time. Perrla. Skin warm and moist to touch. Respirations even and unlabored. Appears disheveled. Clothes scattered throughout the room. Encouraged to maintain hygiene. Anxious and restless. Pressured speech noted. Complaints of intermittent perspiration, generalized body aches, and discomfort. It was reported that pt slept for 10 hours last night. Last ciwa=12 @2000. Pt is on a 5 day ativan taper and is on day 2. Bed on lowest position with side rails x2 up for safety. Med light within reach.
[2018-05-02 08:00] VITALS: BP 141/80
--- NOTE | 2018-05-02 08:00 | NUR ---
CIWA ASSESSMENT ciwa=12. Anxious and restless. Pressured speech noted. Easily irritable. Complaints of intermittent perspiration, generalized body aches, and generalized discomfort.
[2018-05-02] MEDS: THIAMINE HCL 100 MG TABLET PO SCH (08:20)
[2018-05-02] MEDS: MULTIVITAMINS,THERAPEUTIC TABLET PO SCH (08:20)
[2018-05-02] MEDS: FOLIC ACID 1 MG TABLET PO SCH (08:21)
[2018-05-02] MEDS: LISINOPRIL 20 MG TABLET PO SCH (08:21)
[2018-05-02] MEDS: LORAZEPAM 1 MG TABLET PO SCH ×3 (08:21→20:26)
[2018-05-02] MEDS: FLUOXETINE HCL 20 MG CAPSULE PO SCH (08:21)
[2018-05-02] MEDS: PROCHLORPERAZINE EDISYLATE 10 MG/2 ML VIAL IM PRN (08:23)
--- NOTE | 2018-05-02 08:30 | NUR ---
PRN COMPAZINE Pt states feels very nauseous and requesting for compazine and stated, " that's the only thing that works." Compazine IM prn per MD order given and tolerated well.
--- NOTE | 2018-05-02 09:30 | NUR ---
PRN COMPAZINE EVAL Pt denies any vomit episode. Pt states medication is effective.
[2018-05-02] MEDS: HYDROXYZINE PAMOATE 25 MG CAPSULE PO PRN (10:50)
[2018-05-02] MEDS: CLONIDINE HCL 0.1 MG TABLET PO PRN ×2 (10:51→20:26)
--- NOTE | 2018-05-02 10:51 | NUR ---
PRN CATAPRES VISTARIL Pt in room tearful and very anxious. Irritable. Catapres po prn per MD order given and vistaril po prn per MD order given .
--- NOTE | 2018-05-02 11:51 | NUR ---
MERON HARRELL Pt states feels effective. Addendum: 05/02/18 at 1227 by ANNIA QUINONES RN correction Pt states medication effective.
[2018-05-02 12:00] VITALS: BP 140/81
--- NOTE | 2018-05-02 12:00 | NUR ---
CIWA ASSESSMENT ciwa=12. Bilateral hand tremors noted. Anxious and restless. Pressured speech. Easily irritable. Complaints of generalized discomfort and body aches.
--- NOTE | 2018-05-02 14:23 | NUR ---
Therapist prompted client to attend twice daily group therapy sessions.
[2018-05-02 16:00] VITALS: BP 148/93
--- NOTE | 2018-05-02 16:00 | NUR ---
CIWA ASSESSMENT ciwa=12. Anxious and restless. Pressured speech. Irritable and agitation. Pacing. Bilateral hand tremors.
--- NOTE | 2018-05-02 18:12 | NUR ---
END OF SHIFT Pt 43 y/o male admitted for etoh withdrawal. Pt alert and oriented to name, place, and time. Perrla. Skin warm and moist to touch. Respirations even and unlabored. Appears disheveled and unkempt. Clothes and empty drink bottles scattered throughout the room. Encouraged to maintain hygiene. Anxious and restless. Fidgety. Pressured speech. Bilateral hand termors noted. Complaints of generalized body ache. Isolative to room this morning. Pt attended group activity. Medication compliant. Seen by MD today. Last ciwa=12 @1600. Pt is on a 5 day ativan taper and is on day 2. Bed on lowest position with side rails x2 up for safety. Call light within reach.
--- NOTE | 2018-05-02 19:14 | NUR ---
Start of shift note Received report from day shift nurse. Pt is a 43 yo male, A+Ox4, presenting to [facility] for medically supervised ETOH withdrawal. Pt noted with anxiety, agitation, restlessness, and depressed demeanor. Pt has HX of anxiety, depression, ADHD, HTN, and seizure which will be monitored during shift. Pt is on 5 day Ativan taper, tolerated well. Respirations even and unlabored. Will continue to monitor.
[2018-05-02 20:11] VITALS: BP 169/93
--- NOTE | 2018-05-02 20:11 | NUR ---
CIWA Assessment CIWA: 11. Pt noted with fine tremors, sweat on brow, anxiety, agitation, mild itchiness, and depressed demeanor. Respirations even and unlabored. Will continue to monitor.
[2018-05-02] MEDS: IBUPROFEN 600 MG TABLET PO PRN (20:26)
[2018-05-02] MEDS: QUETIAPINE FUMARATE 100 MG TABLET PO SCH (20:26)
--- NOTE | 2018-05-02 20:26 | NUR ---
PRN Clonidine and Motrin Pt c/o Left ankle/ general body aches /10 and noted with B/P 169/93. PRN Motrin and Clonidine given and tolerated well. Will reassess within 1 HR. Will continue to monitor.
--- NOTE | 2018-05-02 21:20 | NUR ---
PRN Clonidine and Motrin Reassessment Medications effective. B/P= 144/89 and pt expresses reduction of pain to 3/10. No s/s of ASE noted at this time. Respirations even and unlabored. Will continue to monitor.
--- NOTE | 2018-05-03 00:54 | NUR ---
V/S refused and CIWA Assessment deferred for sleep. Respirations even and unlabored. Will continue to monitor.
[2018-05-03] MEDS: HYDROXYZINE PAMOATE 25 MG CAPSULE PO PRN ×2 (01:01→15:05)
--- NOTE | 2018-05-03 01:05 | NUR ---
PRN Vistaril Pt c/o anxiety and requested for PRN Vistaril. Medication given and tolerated well. Will reassess within 1 HR. Will continue to monitor.
--- NOTE | 2018-05-03 02:00 | NUR ---
PRN Vistaril Reassessment Medication effective. Pt expresses reduction of anxiety. No s/s of ASE noted at this time. Respirations even and unlabored. Will continue to monitor.
--- NOTE | 2018-05-03 04:27 | NUR ---
V/S refused and CIWA Assessment deferred for sleep. Respirations even and unlabored. Will continue to monitor.
--- NOTE | 2018-05-03 07:00 | NUR ---
End of shift note Pt was continuously noted with agitation, anxiety, and restlessness. Pt remained in room for majority of shift except to attend group therapy, to go smoke on smoking patio, and to get food from kitchen. Pt remained cooperative and compliant with all aspects of treatment. Pt was given PRN Clonidine and Motrin @2025 and PRN Vistaril @104. Pt remains on 5 day Ativan taper, tolerated well. Pt slept for a total of 8 HRS. Last CIWA: 11 @2010. Respirations even and unlabored. Will endorse to day shift nurse.
--- NOTE | 2018-05-03 07:30 | NUR ---
START OF SHIFT Pt 43 y/o male admitted for eoth withdrawal. Pt received in room on bed with eyes closed resting. Pt alert and oriented to name, place, and time. Perrla. Skin warm and moist to touch. Respirations even and unlabored. Appears disheveled. Clothes scattered throughout the room. Encouraged to maintain hygiene. Anxious and restless. Pressured speech. Not able to lay still. Irritable. Complaints of generalized discomfort. Bilateral hand tremors noted. It was reported that pt slept for 8 hours last night. Last ciwa=11 @1999. Pt is on a 5 day ativan taper and is on day 3. Bed on lowest position with side rails x2 up for safety. Call light within reach.
[2018-05-03 08:00] VITALS: BP 123/87
--- NOTE | 2018-05-03 08:00 | NUR ---
CIWA ASSESSMENT ciwa=11. Anxious and restless. Pressured speech. Not able to lay still. Easily irritable. Bilateral hand tremors. Complaints of generalized discomfort.
[2018-05-03] MEDS: FOLIC ACID 1 MG TABLET PO SCH (08:16)
[2018-05-03] MEDS: LORAZEPAM 1 MG TABLET PO SCH ×4 (08:16→22:32)
[2018-05-03] MEDS: THIAMINE HCL 100 MG TABLET PO SCH (08:16)
[2018-05-03] MEDS: MULTIVITAMINS,THERAPEUTIC TABLET PO SCH (08:16)
[2018-05-03] MEDS: FLUOXETINE HCL 20 MG CAPSULE PO SCH (08:16)
[2018-05-03] MEDS: LISINOPRIL 20 MG TABLET PO SCH (08:16)
[2018-05-03 12:00] VITALS: BP 137/82
--- NOTE | 2018-05-03 12:00 | NUR ---
CIWA ASSESSMENT ciwa=11. Bilateral hand tremors noted. Anxious and restless. Pressured speech. Easily irritable. Complaints of generalized discomfort.
[2018-05-03] MEDS: IBUPROFEN 600 MG TABLET PO PRN (12:08)
--- NOTE | 2018-05-03 12:10 | NUR ---
PRN MOTRIN Pt with complaints of pain of both ankles 01/06. Motrin po prn per MD order given and tolerated well.
--- NOTE | 2018-05-03 13:10 | NUR ---
PRN SUZY BABCOCK States bilateral ankle pain 3/10.
[2018-05-03] MEDS: CLONIDINE HCL 0.1 MG TABLET PO PRN (15:05)
[2018-05-03] MEDS: MELOXICAM 7.5 MG TABLET PO PRN (15:07)
--- NOTE | 2018-05-03 15:08 | NUR ---
PRN MOBIC VISTARIL CATAPRES Complaint of pain 01/06. Mobic po prn per MD order given. States is very anxious, "I feel very pissed off right now!". Restless. Catapres po prn per MD order given. Vistaril po prn per MD order given.
[2018-05-03 16:00] VITALS: BP 143/91
--- NOTE | 2018-05-03 16:00 | NUR ---
CIWA ASSESSMENT ciws=11. Anxious and restless. Pressured speech noted. Agitated and easily irritable. Bilateral hand tremors noted.
--- NOTE | 2018-05-03 16:08 | NUR ---
PRN MOBIC VISTARIL CATAPRES Pt states medication is effective for anxiety. States pain 310.
--- NOTE | 2018-05-03 18:39 | NUR ---
END OF SHIFT Pt 43 y/o male admitted for etoh withdrawal. Pt alert and oriented to name, place, and time. P[place]la. Skin warm and moist to touch. Respirations even and unlabored. Appears disheveled and unkempt. Clothes and food wrappings scattered throughout the room. Encouraged to maintain hygiene. Anxious and restless. Pressured speech. Irritable. Bilateral hand tremors noted. Stated had periods of agitation today. Isolative mostly in room today. Pt selective with group activity. Medication compliant. Last ciwa=11 @ 1600. Pt is on a 5 day ativan taper and is on day 3. Bed on lowest position with side rails x2 up for safety. Call light within reach.
--- NOTE | 2018-05-03 19:12 | NUR ---
Start of shift note Received report from day shift nurse. Pt is a 43 yo male, A+Ox4, presenting to [facility] for medically supervised ETOH withdrawal. Pt noted with nausea, restlessness, agitation, depressed demeanor, and anxiety. Pt has HX of anxiety, depression, ADHD, HTN, and seizure which will be monitored during shift. Pt continues on 5 day Ativan taper, tolerated well. Respirations even and unlabored. Will continue to monitor.
[2018-05-03] MEDS: PROCHLORPERAZINE EDISYLATE 10 MG/2 ML VIAL IM PRN (19:47)
--- NOTE | 2018-05-03 19:47 | NUR ---
PRN Compazine Pt note4d with nausea and emesis x2. PRN Compazine given and tolerated well. Will reassess within 1 HR. Will continue to monitor.
--- NOTE | 2018-05-03 20:17 | NUR ---
PRN Compazine Reassessment Medication effective. Pt expresses reduction of nausea and emesis has ceased. No s/s of ASE noted at this time. Respirations even and unlabored. Will continue to monitor.
[2018-05-03 20:47] VITALS: BP 119/71
--- NOTE | 2018-05-03 20:47 | NUR ---
CIWA Assessment CIWA: 14. Pt noted with nausea, fine tremors, sweat on forehead, anxiety, and agitation. Respirations even and unlabored. Will continue to monitor.
[2018-05-03] MEDS: QUETIAPINE FUMARATE 100 MG TABLET PO SCH (22:32)
--- NOTE | 2018-05-04 00:57 | NUR ---
V/S refused and CIWA Assessment deferred for sleep. Respirations even and unlabored. Will continue to monitor.
[2018-05-04] MEDS: HYDROXYZINE PAMOATE 25 MG CAPSULE PO PRN ×4 (02:42→22:44)
--- NOTE | 2018-05-04 02:43 | NUR ---
PRN Vistaril Pt c/o anxiety and requested for PRN Vistaril. Medication given and tolerated well. Will reassess within 1 HR. Will continue to monitor.
--- NOTE | 2018-05-04 03:40 | NUR ---
PRN Vistaril Reassessment Medication effective. Pt expresses reduction of anxiety. No s/s of ASE noted at this time. Respirations even and unlabored. Will continue to monitor.
--- NOTE | 2018-05-04 04:43 | NUR ---
V/S refused and CIWA Assessment deferred for sleep. Respirations even and unlabored. Will continue to monitor.
--- NOTE | 2018-05-04 06:59 | NUR ---
End of shift note Pt was continuously noted with anxiety, restlessness, agitation, and nausea. Pt remained in room for majority of shift except to get food from kitchen, to interact with other patients in recreational room, and to go smoke on smoking patio. Pt remained compliant and cooperative with all aspects of treatment. Pt was given PRN Compazine @1947 and PRN Vistaril @0243. Pt remains on 5 day Ativan taper, tolerated well. Pt slept for a total of 7 HRS. Last CIWA: 14 @2046. Respirations even and unlabored. Will endorse to day shift nurse.
--- NOTE | 2018-05-04 07:30 | NUR ---
Start of Shift Note Pt. is a 43 y/o male admitted for the medically managed withdrawal from ETOH. Pt. was placed on a 5 day Ativan taper manage withdrawal symptoms. Endorse from previous shift pt. presented with anxiety, restlessness, agitation, and nausea. Received pt. in room. Pt. laying in bed watching television. Pt. presents with a disheveled, malodorous and unkempt appearance. Pt.s room is cluttered with personal belongings, empty food containers. Pt.s linens are cluttered about his bed and falling off the sides. Encourage pt. to maintain a hygienic person and personal space. Safety measures in place. Will continue to monitor pt.s behavior for safety.
[2018-05-04] MEDS: PROCHLORPERAZINE EDISYLATE 10 MG/2 ML VIAL IM PRN ×2 (07:58→22:44)
[2018-05-04 08:00] VITALS: BP 165/101
[2018-05-04] MEDS: THIAMINE HCL 100 MG TABLET PO SCH (08:03)
[2018-05-04] MEDS: LORAZEPAM 1 MG TABLET PO SCH ×3 (08:03→20:04)
[2018-05-04] MEDS: MULTIVITAMINS,THERAPEUTIC TABLET PO SCH (08:03)
[2018-05-04] MEDS: FLUOXETINE HCL 20 MG CAPSULE PO SCH (08:03)
[2018-05-04] MEDS: FOLIC ACID 1 MG TABLET PO SCH (08:03)
[2018-05-04] MEDS: LISINOPRIL 20 MG TABLET PO SCH (08:03)
--- NOTE | 2018-05-04 08:05 | NUR ---
CIWA Assessment CIWA of 13. Pt. in room complaining of nausea and anxiety. Pt. presents with restlessness, tremors, and diaphoresis. PRN Vistaril, and Compazine given at this time along side scheduled medication. Will continue to monitor pt.'s behavior for safety and medication effectiveness.
--- NOTE | 2018-05-04 09:00 | NUR ---
PRN Re-Assessment Pt. in room reports an improvement of symptoms. Medication effective. Will continue to monitor pt.'s behavior for safety.
[2018-05-04 12:00] VITALS: BP 144/86
--- NOTE | 2018-05-04 12:00 | NUR ---
CIWA Assessment CIWA of 10. Pt. presents with anxiety, restlessness, diaphoresis, and tremors. Will give medication as ordered. Will continue to monitor pt.'s behavior for safety.
[2018-05-04] MEDS: MELOXICAM 7.5 MG TABLET PO PRN (15:35)
[2018-05-04] MEDS: CLONIDINE HCL 0.1 MG TABLET PO PRN ×2 (15:35→22:45)
--- NOTE | 2018-05-04 15:35 | NUR ---
PRN Medication Pt. in room complaining of increased anxiety and right ankle pain 01/06. PRN Mobic, Clonidine, and Vistaril given at this time to manage withdrawal symptoms. Will continue to monitor pt.'s behavior for safety and medication effectiveness.
[2018-05-04 16:00] VITALS: BP 136/83
--- NOTE | 2018-05-04 16:00 | NUR ---
CIWA Assessment CIWA of 10. Pt. presents with anxiety, restlessness, diaphoresis, and tremors. Pt. medication compliant. Will continue to monitor pt.'s behavior for safety.
--- NOTE | 2018-05-04 16:15 | NUR ---
PRN Re-Assessment Pt. reports a improvement in symptoms. Medication effective. Will continue to monitor pt.'s behavior for safety.
--- NOTE | 2018-05-04 19:30 | NUR ---
End of Shift Note Pt. is a 43 y/o male admitted for the medically managed withdrawal from ETOH. Pt. was placed on a 5 day Ativan taper manage withdrawal symptoms. Throughout shift pt. presented with anxiety, restlessness, agitation, and nausea. PRN Vistaril, Mobic, Clonidine, and Compazine given to manage withdrawal symptoms. Safety measures in place. Will endorse pt.s care to oncoming shift.
--- NOTE | 2018-05-04 19:40 | NUR ---
Start of Shift Note Received a 43 y/o male px, admitted for medically supervised withdrawal from ETOH. Px was placed on 5 day Ativan taper, started on 05/01/2018. He is tolerating it. Last reported CIWA 10 by AM shift nurse. During the rounds at 1940, px is awake on bed in fowlers position, watching TV. Px appears anxious and depressed. He is disheveled, odorous and unshaven. Snacks and drinks noted on top of the bed side table and shelves. Px states that he is angry and depressed at the same time. His anxiety is 8/10. Px is sobbing while talking about his marriage is on the process of divorce. I cant see my children anymore. Sweats noted. Mild bilateral hand tremors noted. Px was reassured. Bed is on the lowest position but refused to put up both upper side rails, and call light within reach. Well continue to monitor.
[2018-05-04 20:00] VITALS: BP 145/90
--- NOTE | 2018-05-04 20:00 | NUR ---
WA 16 Upon assessment, px appears anxious and depressed. He is disheveled, odorous and unshaven. Px states that he is angry and depressed at the same time. His anxiety is 8/10. Px is sobbing while talking about his marriage is on the process of divorce. I cant see my children anymore. Sweats noted. Mild bilateral hand tremors noted. will continue to monitor.
[2018-05-04] MEDS: QUETIAPINE FUMARATE 100 MG TABLET PO SCH (20:04)
--- NOTE | 2018-05-04 22:45 | NUR ---
PRN medications Px woke up and complained of insomnia and nausea. He states that he wanted Compazine injection for nausea. Px refused Zofran tab SL. Px received Clonidine 0.1 mg PO and Vistaril 50 mg PO for anxiety and insomnia. He also got Compazine 10 mg IM for nausea. will continue to monitor
--- NOTE | 2018-05-04 23:15 | NUR ---
PRN Compazine injection reassessment Px states that his nausea improved.
--- NOTE | 2018-05-04 23:45 | NUR ---
PRN Clonidine and Vistaril reassessment On assessment, px is still awake. He is on bed in right side lying position. He states that his anxiety improved. will continue to monitor
[2018-05-05] VITALS: BP 132/88
--- NOTE | 2018-05-05 | NUR ---
CIWA 12 On assessment, px is still awake at the moment, he still appears anxious and depressed. His anxiety is 6/1 with complaints of sweats. Mild bilateral hand tremors noted. will continue to monitor.
[2018-05-05] MEDS: MAG HYDROX/AL HYDROX/SIMETH 30 ML LIQUID UDC PO PRN (01:00)
--- NOTE | 2018-05-05 01:00 | NUR ---
PRN Mylanta Px received Mylanta 30 ml for heartburns. to reassess after an hour
--- NOTE | 2018-05-05 02:00 | NUR ---
MERON Mcnulty reassessment Px states that his heartburns improved. will continue to monitor
[2018-05-05 04:00] VITALS: BP 129/82
--- NOTE | 2018-05-05 04:00 | NUR ---
CIWA deferred CIWA deferred due to the px is asleep, to assess if the px is awake per doctor's order. will continue to monitor
--- NOTE | 2018-05-05 07:05 | NUR ---
End of Shift Note During the shift at 2245, px received Clonidine 0.1 mg PO and Vistaril 50 mg for anxiety. They were effective. Compazine 10 mg injection was also given for nausea. It was also effective. At 0100, He received Mylanta 30 ml PO for heart zambrano, it was effective. Oral intake of 800 ml, voided 2x, with No BM. Last CIWA 12. Bed is on the lowest position but refused to put up both upper side rails, and call light within reach. Well continue to monitor. Px endorsed to AM shit nurse.
--- NOTE | 2018-05-05 07:48 | NUR ---
START OF SHIFT NOTE Received report from night nurse, patient is 43 year old male admitted for ETOH withdrawal and continues with 5 days Ativan taper tolerating well. Per endorsement patient received PRN Clonidine/Vistaril Compazine and Mylanta effective per night nurse, slept for 7 hours and last CIWA score was 12. Received patient alert awake oriented x4 with labile facial expression, worried, anxious, agitated, light headed, unkempt room, linens on the floor, bilateral hand tremors, Patient is due for scheduled medications. All safety measures in place, Call light within reach. Will cont to monitor.
[2018-05-05 08:00] VITALS: BP 136/86
[2018-05-05] MEDS: MULTIVITAMINS,THERAPEUTIC TABLET PO SCH (08:39)
[2018-05-05] MEDS: THIAMINE HCL 100 MG TABLET PO SCH (08:39)
[2018-05-05] MEDS: FOLIC ACID 1 MG TABLET PO SCH (08:39)
[2018-05-05] MEDS: LORAZEPAM 1 MG TABLET PO SCH ×2 (08:40→21:23)
[2018-05-05] MEDS: LISINOPRIL 20 MG TABLET PO SCH (08:40)
--- NOTE | 2018-05-05 08:40 | NUR ---
CIWA ASSESSMENT CIWA score 13, Patient presented with flat facial expression, sweats, bilateral hand tremors, anxiety, agitation. Patient was given his scheduled medications. Will cont to monitor.
[2018-05-05] MEDS ORDERED: FLUOXETINE HCL 10 MG CAPSULE PO SCH (09:00)
[2018-05-05] MEDS ORDERED: FLUOXETINE HCL 20 MG CAPSULE PO SCH (09:00)
[2018-05-05] MEDS ORDERED: FLUOXETINE HCL 10 MG CAPSULE PO ONE (11:30)
--- NOTE | 2018-05-05 11:30 | NUR ---
Psychiatrist Communication: Clarified with Dr. Villa about pt's Prozac order. Pt to have 40mg Prozac PO daily. Pt received 30mg of Prozac this morning. New order for 10mg Prozac ONE TIME now to reflect new order. Orders noted and carried out.
[2018-05-05 12:00] VITALS: BP 137/95
--- NOTE | 2018-05-05 12:00 | NUR ---
CIWA ASSESSMENT CIWA score 11, Patient presented with sweats, anxiety, agitation, bilateral hand tremors. Will cont to monitor.
--- NOTE | 2018-05-05 13:47 | NUR ---
Therapist prompted client to attend all group therapy sessions.
[2018-05-05 16:00] VITALS: BP 144/99
--- NOTE | 2018-05-05 16:00 | NUR ---
CIWA ASSESSMENT CIWA score 10, Patient presented with labile facial expression, anxiety, agitation, sweats, bilateral hand tremors.
[2018-05-05] MEDS: MELOXICAM 7.5 MG TABLET PO PRN (18:23)
[2018-05-05] MEDS: HYDROXYZINE PAMOATE 25 MG CAPSULE PO PRN (18:23)
--- NOTE | 2018-05-05 18:23 | NUR ---
PRN VISTARIL/MOBIC Patient reported increased in anxiety, agitation, restless, and left ankle pain 6/10, PRN Vistaril 50mg PO, and Mobic 7.5mg PO given as ordered. Will cont to monitor and reassess.
--- NOTE | 2018-05-05 19:23 | NUR ---
MOBIC AND VISTARIL REASSESSMENT Per patient left ankle pain lower to 2/10 and anxiety and agitation, restless decreased. Medications were effective.
--- NOTE | 2018-05-05 19:30 | NUR ---
START OF SHIFT Pt is a 43 y/o male admitted for ETOH withdrawal. Pt continues on Ativan taper as ordered and is tolerating well. Pt was given PRN Vistaril and Mobic per day shift and was noted to be effective. Pt received lying in bed,A/A/O X 4,c/o feeling extremely anxious with generalized aches and pain. Pt has been attending groups and activities. He is med compliant. PO fluids encouraged as tolerated. Last CIWA score was-10. All safety measures in place, call light within reach. Will continue to monitor.
--- NOTE | 2018-05-05 19:32 | NUR ---
END OF SHIFT NOTE Gave report to night nurse, 43 year old male admitted for ETOH withdrawal. Patient continues on Ativan taper tolerating well. Patient presented with blunt facial expression, diaphoresis, anhedonia, anxiety, agitation, restless, fatigue, light headed, sweats, bilateral hand tremors. Patient was given scheduled medications along with PRN Vistaril, Mobic noted to be effective Patient denies any SI/HI. Vital signs WNL. Patient noted attending groups and activities. Encourage PO fluids as tolerated. Last CIWA score was-10. All safety measures in place, call light within reach. Patient endorse to night nurse in stable condition.
[2018-05-05 20:00] VITALS: BP 153/98
--- NOTE | 2018-05-05 20:00 | NUR ---
CIWA-10 CIWA score 10, Pt c/o anxiety, sweats, bilateral hand tremors and agitation. Will medicate per orders.
[2018-05-05] MEDS: CLONIDINE HCL 0.1 MG TABLET PO PRN (20:16)
--- NOTE | 2018-05-05 20:17 | NUR ---
PRN CLONIDINE 0.1 MG PO GIVEN FOR ANXIETY AND B/P 153/98.UH=725.WILL MONITOR FOR EFFECTIVENESS.
[2018-05-05] MEDS ORDERED: QUETIAPINE FUMARATE 100 MG TABLET PO SCH (21:00)
--- NOTE | 2018-05-05 21:17 | NUR ---
PRN REASSESSMENT ANXIETY DECREASED; B/P=149/89,JW=701.WILL CONTINUE TO MONITOR.
[2018-05-05] MEDS: QUETIAPINE FUMARATE 200 MG TABLET PO SCH (21:23)
[2018-05-06 04:00] VITALS: BP 128/69
[2018-05-06] MEDS: MAG HYDROX/AL HYDROX/SIMETH 30 ML LIQUID UDC PO PRN (04:21)
--- NOTE | 2018-05-06 04:21 | NUR ---
PRN MYLANTA 30 ML PO GIVEN FOR C/O HEARTBURN.WILL MONITOR.
[2018-05-06] MEDS: HYDROXYZINE PAMOATE 25 MG CAPSULE PO PRN ×2 (04:37→18:00)
[2018-05-06] MEDS: MELOXICAM 7.5 MG TABLET PO PRN ×2 (04:37→18:00)
--- NOTE | 2018-05-06 04:37 | NUR ---
PRN MEDS Pt is awake,c/o feeling anxious and is unable to go back to sleep.Also c/o pain in left ankle.PRN Vistaril given for anxiety and PRN Mobic given for pain 02/05.Will continue to monitor.
--- NOTE | 2018-05-06 05:37 | NUR ---
PRN REASSESSMENT. PRN meds are effective;pt is calm and sleeping at this time;no s/s of distress noted, will continue to monitor.
--- NOTE | 2018-05-06 06:45 | NUR ---
END OF SHIFT Pt is a 43 y/o male admitted for ETOH withdrawal. Pt has completed his Ativan taper,last dose was given last night. Pt was given PRN Vistaril , Mobic,Mylanta and Clonidine during the night and were effective. Pt is A/A/O X 4. Pt has been attending groups and activities. He is med compliant. PO fluids encouraged as tolerated. Last CIWA score was-9. Pt slept 8 hours, fluid intake was 3105 ml,voided x 8,had B/M X 2. All safety measures in place, call light within reach. Will continue to monitor.
--- NOTE | 2018-05-06 07:50 | NUR ---
START OF SHIFT NOTE Received report from night nurse, patient is 43 year old male admitted for ETOH withdrawal and continues with 5 days Ativan taper tolerating well. Per endorsement patient received PRN Clonidine/Vistaril and Mylanta, Mobic effective per night nurse, slept for 8 hours and last CIWA score was 9. Received patient alert awake oriented x4 with sad facial expression, fatigue, anxious, agitated, unkempt room, bilateral hand tremors, Patient is due for scheduled medications. All safety measures in place, Call light within reach. Will cont to monitor.
[2018-05-06 08:00] VITALS: BP 125/70
--- NOTE | 2018-05-06 08:00 | NUR ---
CIWA ASSESSMENT CIWA score 11, Patient presented with sweats, anxiety, agitation, bilateral hand tremors. Will cont to monitor.
[2018-05-06] MEDS: FLUOXETINE HCL 20 MG CAPSULE PO SCH (08:30)
[2018-05-06] MEDS: THIAMINE HCL 100 MG TABLET PO SCH (08:30)
[2018-05-06] MEDS: MULTIVITAMINS,THERAPEUTIC TABLET PO SCH (08:30)
[2018-05-06] MEDS: FOLIC ACID 1 MG TABLET PO SCH (08:30)
[2018-05-06] MEDS: LISINOPRIL 20 MG TABLET PO SCH (08:31)
[2018-05-06] MEDS ORDERED: FLUOXETINE HCL 10 MG CAPSULE PO SCH (09:00)
[2018-05-06] MEDS ORDERED: FLUOXETINE HCL 20 MG CAPSULE PO SCH (09:00)
[2018-05-06 12:00] VITALS: BP_SYST 144; BP_SYST 145; BP_DIAS 103; BP_DIAS 90
--- NOTE | 2018-05-06 12:00 | NUR ---
CIWA ASSESSMENT CIWA score 12, Patient reported increased in sweats, anxiety, agitation, bilateral hand tremors. Encourage patient to use non pharmacological intervention such as deep breathing, listening to the music, patient verbalized understanding. Will cont to monitor.
[2018-05-06] MEDS: CLONIDINE HCL 0.1 MG TABLET PO PRN ×2 (12:21→21:10)
--- NOTE | 2018-05-06 12:21 | NUR ---
PRN CLONIDINE Patient reported anxiety, agitation, restless, diaphoresis, chills. PRN Clonidine 0.1mg PO given as ordered. Will cont to monitor and reassess.
--- NOTE | 2018-05-06 12:40 | NUR ---
Therapist prompted client to attend group therapy sessions.
--- NOTE | 2018-05-06 13:21 | NUR ---
CLONIDINE REASSESSMENT Patient reported clonidine was effective anxiety, agitation, sweats, chills subsided.
[2018-05-06] MEDS ORDERED: MULT-24 PO (13:44)
[2018-05-06] MEDS ORDERED: QUET200T PO (13:44)
[2018-05-06] MEDS ORDERED: LISI-603 PO (13:44)
[2018-05-06] MEDS ORDERED: CLON0.1T PO (13:44)
[2018-05-06] MEDS ORDERED: FLUO-120 PO (13:44)
[2018-05-06] MEDS ORDERED: HYDR50CA5 PO (13:44)
[2018-05-06] MEDS ORDERED: MELO-105 PO (13:44)
[2018-05-06 16:00] VITALS: BP 142/93
--- NOTE | 2018-05-06 19:00 | NUR ---
MOBIC AND VISTARIL REASSESSMENT Per patient left ankle pain lower to 2/10 and anxiety and agitation, restless decreased. Medications were effective.
--- NOTE | 2018-05-06 19:15 | NUR ---
END OF SHIFT NOTE Gave report to night nurse, 43 year old male admitted for ETOH withdrawal. Patient continues on Ativan taper tolerating well. Patient presented with labile facial expression,sweats, anhedonia, anxiety, agitation, restless, fatigue, left ankle pain, sweats, bilateral hand tremors. Patient was given scheduled medications along with PRN Vistaril, Mobic noted to be effective Patient denies any SI/HI. Vital signs WNL. Patient noted attending groups and activities. Encourage PO fluids as tolerated. Last CIWA score was-9. Patient set for discharge in AM. All safety measures in place, call light within reach. Patient endorse to night nurse in stable condition.
--- NOTE | 2018-05-06 19:30 | NUR ---
START OF SHIFT Pt is a 43 y/o male admitted for ETOH withdrawal. Pt has completed his Ativan taper and is scheduled for discharge tomorrow. Pt was given PRN Clonidine,Vistaril and Mobic per day shift and was effective. Pt received lying in bed, A/A/O X 4,c/o feeling anxious with generalized aches and pain.Pt is focused on getting a good nights sleep to be ready for DC tomorrow.Pt has been attending groups and activities. He is med compliant. PO fluids encouraged as tolerated. Last CIWA score was-9. All safety measures in place, call light within reach. Will continue to monitor.
[2018-05-06 20:00] VITALS: BP 142/78
--- NOTE | 2018-05-06 20:00 | NUR ---
CIWA-8 CIWA score 8, Pt c/o anxiety, sweats, bilateral hand tremors and restlessness. Will medicate per orders.
[2018-05-06] MEDS: QUETIAPINE FUMARATE 200 MG TABLET PO SCH (21:09)
--- NOTE | 2018-05-06 21:10 | NUR ---
PRN CLONIDINE 0.1 MG PO GIVEN FOR ANXIETY/DIAPHORESIS,B/P - 142/78;HR=99.WILL CONTINUE TO MONITOR.
--- NOTE | 2018-05-06 22:10 | NUR ---
PRN F/U PRN is effective,B/P decreased to 139/75.Pt is feeling less anxious and is getting ready to sleep; will monitor.
--- NOTE | 2018-05-07 | NUR ---
CIWA deferred CIWA deferred due to the pt being asleep; v/s refused; pt is sleeping soundly in bed; breathing is even and non labored,no s/s of distress noted, will continue to monitor.
--- NOTE | 2018-05-07 06:46 | NUR ---
END OF SHIFT Pt is a 43 y/o male admitted for ETOH withdrawal. Pt has completed his Ativan taper and is scheduled for DC today. Pt was given PRN Clonidine during the night and were effective. Pt is A/A/O X 4. Last CIWA score was-8. Pt slept 5 hours, fluid intake was 1542 ml,voided x 2. All safety measures in place, call light within reach. Will continue to monitor.
[2018-05-07 08:05] VITALS: BP 122/71
--- NOTE | 2018-05-07 08:08 | NUR ---
START OF SHIFT: Received Pt A/O X 4. He presents with anxious mood and congruent affect. He completed Ativan taper . CIWA 4. He states he is mildly anxious about discharge this morning but is motivated toward recovery. He states he will be attending IOP and 12 step meetings when he returns home. Will continue with discharge planning.
[2018-05-07] MEDS: THIAMINE HCL 100 MG TABLET PO SCH (08:19)
[2018-05-07] MEDS: FLUOXETINE HCL 20 MG CAPSULE PO SCH (08:19)
[2018-05-07] MEDS: FOLIC ACID 1 MG TABLET PO SCH (08:19)
[2018-05-07] MEDS: MULTIVITAMINS,THERAPEUTIC TABLET PO SCH (08:19)
[2018-05-07 08:20] VITALS: BP 102/71
[2018-05-07] MEDS: LISINOPRIL 20 MG TABLET PO SCH (08:20)
--- NOTE | 2018-05-07 09:50 | NUR ---
DISCHARGE: Pt is A/O X 4. He denies S/I and H/I. Education provided on discharge instructions and medication. Belongings returned. He expressed verbal understanding of education. He expressed enthusiasm toward recovery. SLICING MACHINE OPERATOR escorted pt to [facility] where he was transported by [employer] transportation to [facility] at 0944.
== END 2018-05-07 09:44 | disposition home or self-care (01) | DRG 895 ==
LOC: SRC 12:24
PROVIDERS: ADMIT Family Medicine Addiction Medicine; ATTEND Family Medicine Addiction Medicine
PROC: HZ2ZZZZ Detoxification Services for Substance Abuse Treatment (ICD-10-PCS; principal; 2018-04-30)
PROC: HZ31ZZZ Individual Counseling for Substance Abuse Treatment, Behavioral (ICD-10-PCS; principal; 2018-04-30)
PROC: HZ41ZZZ Group Counseling for Substance Abuse Treatment, Behavioral (ICD-10-PCS; 2018-05-01)
DX: F10.230 Alcohol dependence with withdrawal, uncomplicated (principal); G40.509 Epileptic seizures related to external causes, not intractable, without status epilepticus; F31.32 Bipolar disorder, current episode depressed, moderate; Y90.9 Presence of alcohol in blood, level not specified; F41.1 Generalized anxiety disorder; E66.3 Overweight; Z68.34 Body mass index [BMI] 34.0-34.9, adult; F90.9 Attention-deficit hyperactivity disorder, unspecified type; I10 Essential (primary) hypertension; R74.0 Nonspecific elevation of levels of transaminase and lactic acid dehydrogenase [LDH]
CPT/HCPCS: 36415; 70030-TC; 80307; 80346; 80349; 83690; 83735; 84443; 85025; 86592; 86705; 86803; 87340; 87806; 93005; G0480; J0780; J3411; Q0162